=== PATIENT | male | born 1935 | race Caucasian/White ===

== ENCOUNTER 2018-07-17 12:08 | Emergency (ER) | payer MEDICARE ==
[2018-07-17 12:29] VITALS: TEMP 97.4
[2018-07-17] MEDS ORDERED: SODIUM CHLORIDE 0.9% 1,000 ML IV STA (12:34)
[2018-07-17] MEDS ORDERED: MORPHINE SULFATE 4 MG/ML SYRINGE IVP STA ×2 (12:35→15:50)
--- NOTE | 2018-07-17 12:35 | ED ---
Fall HPI - General Chief Complaint: Fall Stated Complaint: fall 12-13 ft Time Seen by Provider: 07/17/18 12:27 Source: patient, EMS Mode of arrival: EMS Limitations: no limitations - History of Present Illness Initial Comments: This is a 82-year-old male fall from roof, patient was doing some fall clean, is up out of his U of the roof of his house down to his ladder and the ladder fell patient then fell to the ground following ladder. Patient's complaining of some back pain with no headache no loss of consciousness no blood thinners. Patient denies shortness of breath or abdominal pain MD Complaint: fall -: minutes(s) Fall From: from height (distance) (10:15 feet) When Fall Occurred: just prior to arrival Fall Witnessed: no Place Fall Occurred: home Loss of Consciousness: none Prolonged Down Time?: no Symptoms Prior to Fall: none Location: head, back Severity: mild Severity scale (1-10): 2 Quality: aching Context: tripped/slipped Associated Symptoms: denies - Related Data Home Medications Medication Instructions Recorded Confirmed Aspirin 81 mg PO DAILY 07/17/18 07/17/18 Atorvastatin [Lipitor] 80 mg PO HS 07/17/18 07/17/18 Allergies Allergy/AdvReac Type Severity Reaction Status Date / Time No Known Allergies Allergy Verified 07/17/18 12:46 Review of Systems ROS Statement: Those systems with pertinent positive or pertinent negative responses have been documented in the HPI. ROS Other: All systems not noted in ROS Statement are negative. Past Medical History Past Medical History: CVA/TIA, Hyperlipidemia History of Any Multi-Drug Resistant Organisms: None Reported Past Surgical History: Bowel Resection Past Psychological History: No Psychological Hx Reported Smoking Status: Former smoker Past Alcohol Use History: Occasional Past Drug Use History: None Reported General Exam - General Exam Comments Initial Comments: This is a 15, trach is midline Airways patent, patient does not appear intoxicated, breath sounds are equal bilaterally Limitations: no limitations General appearance: alert, in no apparent distress Head exam: Present: atraumatic, normocephalic, normal inspection Eye exam: Present: normal appearance, PERRL, EOMI. Absent: scleral icterus, conjunctival injection, periorbital swelling ENT exam: Present: normal exam, mucous membranes moist Neck exam: Present: normal inspection. Absent: tenderness, meningismus, lymphadenopathy Respiratory exam: Present: normal lung sounds bilaterally. Absent: respiratory distress, wheezes, rales, rhonchi, stridor Cardiovascular Exam: Present: regular rate, normal rhythm, normal heart sounds. Absent: systolic murmur, diastolic murmur, rubs, gallop, clicks GI/Abdominal exam: Present: soft, normal bowel sounds. Absent: distended, tenderness, guarding, rebound, rigid Extremities exam: Present: normal inspection, full ROM, normal capillary refill. Absent: tenderness, pedal edema, joint swelling, calf tenderness Back exam: Present: normal inspection Neurological exam: Present: alert, oriented X3, CN II-XII intact Psychiatric exam: Present: normal affect, normal mood Skin exam: Present: warm, dry, intact, normal color. Absent: rash Course Vital Signs 07/17/18 07/17/18 07/17/18 12:16 12:30 12:45 Temperature 97.4 F L Pulse Rate 83 81 82 Respiratory 18 20 20 Rate Blood Pressure 134/63 131/69 137/71 O2 Sat by Pulse 93 L 94 L Oximetry 07/17/18 07/17/18 07/17/18 13:00 13:15 13:30 Temperature Pulse Rate 84 82 74 Respiratory 20 18 20 Rate Blood Pressure 146/69 133/72 131/64 O2 Sat by Pulse 97 97 98 Oximetry 07/17/18 13:45 Temperature Pulse Rate 69 Respiratory 20 Rate Blood Pressure 132/65 O2 Sat by Pulse 98 Oximetry - Reevaluation(s) Reevaluation #1: 07/17/18 13:39 Medical record is reviewed Reevaluation #2: 07/17/18 15:17 Spoke with radiologist regarding CT findings Spoke with family, and son present informed of patient's diagnosis, questions are answered Medical Decision Making - Medical Decision Making 82 male positive fall from building, patient fell off his roof greater than 10 feet. Patient did land on his back and hit his head, no loss of consciousness. Patient does have cervical spine subluxation fraction is unstable, patient is in C-spine has been in C-spine precautions throughout ER stay in per EMS. - Lab Data Result diagrams: 07/17/18 12:20 07/17/18 12:20 Lab Results 07/17/18 07/17/18 07/17/18 Range/Units 12:20 12:20 12:20 WBC 17.9 H (3.8-10.6) k/uL RBC 4.34 (4.30-5.90) m/uL Hgb 12.7 L (13.0-17.5) gm/dL Hct 40.2 (39.0-53.0) % MCV 92.7 (80.0-100.0) fL MCH 29.3 (25.0-35.0) pg MCHC 31.6 (31.0-37.0) g/dL RDW 13.4 (11.5-15.5) % Plt Count 372 (150-450) k/uL Neutrophils % 88 % Lymphocytes % 6 % Monocytes % 4 % Eosinophils % 1 % Basophils % 0 % Neutrophils # 15.6 H (1.3-7.7) k/uL Lymphocytes # 1.1 (1.0-4.8) k/uL Monocytes # 0.7 (0-1.0) k/uL Eosinophils # 0.2 (0-0.7) k/uL Basophils # 0.1 (0-0.2) k/uL PT (9.0-12.0) sec INR (<1.2) APTT (22.0-30.0) sec Sodium 139 (137-145) mmol/L Potassium 4.4 (3.5-5.1) mmol/L Chloride 106 (98-107) mmol/L Carbon Dioxide 26 (22-30) mmol/L Anion Gap 7 mmol/L BUN 21 H (9-20) mg/dL Creatinine 0.91 (0.66-1.25) mg/dL Est GFR (CKD-EPI)AfAm 90 (>60 ml/min/1.73 sqM) Est GFR (CKD-EPI)NonAf 78 (>60 ml/min/1.73 sqM) Glucose 162 H (74-99) mg/dL Plasma Lactic Acid Petey (0.7-2.0) mmol/L Calcium 9.0 (8.4-10.2) mg/dL Total Bilirubin 0.9 (0.2-1.3) mg/dL AST 41 (17-59) U/L ALT 33 (21-72) U/L Alkaline Phosphatase 61 (38-126) U/L Total Creatine Kinase 620 H (55-170) U/L CK-MB (CK-2) 20.1 H (0.0-2.4) ng/mL CK-MB (CK-2) Rel Index 3.2 Troponin I <0.012 (0.000-0.034) ng/mL Total Protein 6.5 (6.3-8.2) g/dL Albumin 3.1 L (3.5-5.0) g/dL Serum Alcohol <10 mg/dL Blood Type Blood Type Recheck Antibody Screen Spec Expiration Date 07/17/18 07/17/18 07/17/18 Range/Units 12:20 12:20 12:20 WBC (3.8-10.6) k/uL RBC (4.30-5.90) m/uL Hgb (13.0-17.5) gm/dL Hct (39.0-53.0) % MCV (80.0-100.0) fL MCH (25.0-35.0) pg MCHC (31.0-37.0) g/dL RDW (11.5-15.5) % Plt Count (150-450) k/uL Neutrophils % % Lymphocytes % % Monocytes % % Eosinophils % % Basophils % % Neutrophils # (1.3-7.7) k/uL Lymphocytes # (1.0-4.8) k/uL Monocytes # (0-1.0) k/uL Eosinophils # (0-0.7) k/uL Basophils # (0-0.2) k/uL PT 11.0 (9.0-12.0) sec INR 1.1 (<1.2) APTT 25.0 (22.0-30.0) sec Sodium (137-145) mmol/L Potassium (3.5-5.1) mmol/L Chloride (98-107) mmol/L Carbon Dioxide (22-30) mmol/L Anion Gap mmol/L BUN (9-20) mg/dL Creatinine (0.66-1.25) mg/dL Est GFR (CKD-EPI)AfAm (>60 ml/min/1.73 sqM) Est GFR (CKD-EPI)NonAf (>60 ml/min/1.73 sqM) Glucose (74-99) mg/dL Plasma Lactic Acid Petey 1.9 (0.7-2.0) mmol/L Calcium (8.4-10.2) mg/dL Total Bilirubin (0.2-1.3) mg/dL AST (17-59) U/L ALT (21-72) U/L Alkaline Phosphatase (38-126) U/L Total Creatine Kinase (55-170) U/L CK-MB (CK-2) (0.0-2.4) ng/mL CK-MB (CK-2) Rel Index Troponin I (0.000-0.034) ng/mL Total Protein (6.3-8.2) g/dL Albumin (3.5-5.0) g/dL Serum Alcohol mg/dL Blood Type A Positive Blood Type Recheck CABO Indicated Antibody Screen NEGATIVE Spec Expiration Date 07/20/2018 - 706 - Radiology Data Radiology results: report reviewed (CT brain C-spine chest and pelvis is positive for C5 on 6 cervical subluxation), image reviewed Disposition Clinical Impression: Fall, Cervical subluxation Disposition: OTHER INSTITUTION NOT DEFINED Condition: Serious Is patient prescribed a controlled substance at d/c from ED?: No Referrals: Mitesh Cook DO [Primary Care Provider] - 1-2 days - Out of Hospital Transfer - Req. Specs Out of Hospital Transfer - Requested Specifics: Other Emergency Center ([facility])
[2018-07-17 13:12] LABS: Basophils # (A) 0.1 k/uL (0-0.2); Basophils % (A) 0 %; Eosinophils # (A) 0.2 k/uL (0-0.7); Eosinophils % (A) 1 %; HCT 40.2 % (39.0-53.0); HGB 12.7 gm/dL (13.0-17.5); Lymphocytes # (A) 1.1 k/uL (1.0-4.8); Lymphocytes % (A) 6 %; MCH 29.3 pg (25.0-35.0); MCHC 31.6 g/dL (31.0-37.0); MCV 92.7 fL (80.0-100.0); Mean Platelet Volume 6.5; Monocytes # (A) 0.7 k/uL (0-1.0); Monocytes % (A) 4 %; Neutrophils # (A) 15.6 k/uL (1.3-7.7); Neutrophils % (A) 88 %; Platelet Count 372 k/uL (150-450); RBC 4.34 m/uL (4.30-5.90); RDW 13.4 % (11.5-15.5); WBC 17.9 k/uL (3.8-10.6)
[2018-07-17 13:19] LABS: ALT 33 U/L (21-72); AST 41 U/L (17-59); Albumin 3.1 g/dL (3.5-5.0); Alcohol <10 mg/dL; Alkaline Phosphatase 61 U/L (38-126); Anion Gap 7 mmol/L; Blood Urea Nitrogen 21 mg/dL (9-20); Carbon Dioxide 26 mmol/L (22-30); Chloride 106 mmol/L (98-107); Glucose 162 mg/dL (74-99); Potassium 4.4 mmol/L (3.5-5.1); Sodium 139 mmol/L (137-145); Total Bilirubin 0.9 mg/dL (0.2-1.3); Total Protein 6.5 g/dL (6.3-8.2)
[2018-07-17 13:20] LABS: INR 1.1 (<1.2)
[2018-07-17 13:49] LABS: Creatine Kinase 620 U/L (55-170)
[2018-07-17 14:02] LABS: Creatine Kinase MB 20.1 ng/mL (0.0-2.4); Troponin I <0.012 ng/mL (0.000-0.034)
--- NOTE | 2018-07-17 14:50 | CT ---
EXAMINATION TYPE: CT ChestAbdPelvis w con DATE OF EXAM: 07/17/2018 COMPARISON: HISTORY: Fall 12-[address] DLP: 5935.2 (brain, cervical, chest abd pelvis) mGycm Automated exposure control for dose reduction was used. CONTRAST: CT scan of the chest, abdomen and pelvis is performed without Oral Contrast and with IV Contrast, pat ient injected with 100 mL of Isovue 300. FINDINGS: LUNGS: The lungs are grossly clear, there is no concerning parenchymal mass or nodule identified. Sub pleural calcification in the right upper lobe laterally may represent a small granuloma. There is emp hysematous change present especially at the upper lobes. Dependent atelectatic changes are present. There is no pleural effusion or pneumothorax seen. The tracheobronchial tree is patent. MEDIASTINUM: There are no greater than 1 cm hilar or mediastinal lymph nodes. No pericardial effusi on is seen. Coronary artery calcifications are present. AORTA: No significant abnormality is seen. OTHER: No additional significant abnormality is seen. LIVER/GB: No significant abnormality is appreciated. Liver shows low attenuation possibly due to hepa tic steatosis. PANCREAS: No significant abnormality is seen. SPLEEN: There is a calcification within the spleen. ADRENALS: Some prominence of the right adrenal gland shows low attenuation and may represent an adeno ma measuring 17 mm, consider follow-up KIDNEYS: No significant abnormality is seen. Cortical cyst associated with the left kidney. REPRODUCT ROBERT ORGANS: No gross abnormality seen. BOWEL: Diverticular change present in the sigmoid colon. FREE AIR: No Free Air visible. ASCITES: None seen. RETROPERITONEAL ADENOPATHY: No retroperitoneal adenopathy is seen. LYMPH NODES: No greater than 1 cm abdominal or pelvic lymph nodes are appreciated. URINARY BLADDER: No significant abnormality is seen. PELVIC ADENOPATHY: None visualized. OSSEOUS STRUCTURES: No significant abnormality is seen. There is mild spinal curvature. Degenerative disc changes are present, there is facet arthropathy. No evident fracture or dislocation. IMPRESSION: No acute osseous fracture, abnormal fluid collection, or evidence of solid organ injury i n the thorax, abdomen, or pelvis. Additional findings above, consider follow-up. Probable old granulo matous disease.
--- NOTE | 2018-07-17 15:02 | CT ---
EXAMINATION TYPE: CT brain rosa david DATE OF EXAM: 07/17/2018 COMPARISON: HISTORY: Fall 12-[address] DLP: 5935.2 (brain, cervical, chest, abd pelvis) mGycm Automated exposure control for dose reduction was used. TECHNIQUE: CT scan of the head and cervical spine are performed without contrast. FINDINGS: There is no acute intracranial hemorrhage, mass effect, or midline shift identified. The ventricles and sulci are within normal limits in size. Periventricular white matter shows low attenu ation. There is cortical atrophy which is likely age-related. The globes are intact and the visualize d sinuses are clear. Cervical spine is visualized in its entirety from C1 through upper thoracic levels and demonstrates a nterior subluxation C5 on C6, bilateral jumped facets are present with resulting canal stenosis, ante rolisthesis grade 1 to grade 2 of C5 on C6. Small ossific densities seen just distal to the C5 verteb ral body are thought likely to be due to endplate fractures at C6 anteriorly. Vertebral bodies are in tact. IMPRESSION: 1. There is bilateral jumped facets C5-6 as described in the cervical spine. Report called to the ref erring clinician at the time of interpretation at exam. 2. No acute intracranial hemorrhage, mass effect, or midline shift is seen.
[2018-07-17] MEDS ORDERED: DIPH,PERTUS(ACELL)TETVAC-LF 0.5 ML VIAL IM ONE (15:56)
[2018-07-17 16:10] LABS: Appearance,Urine Clear (Clear); Bilirubin,Urine Negative (Negative); Blood,Urine Moderate (Negative); Color,Urine Light Yellow; Glucose,Urine (UA) Negative (Negative); Ketones,Urine 1+ (Negative); Leukocyte Esterase,Urine Trace (Negative); Mucus,Urine Rare /hpf; Nitrite,Urine Negative (Negative); PH, Urine 7.5 (5.0-8.0); Protein,Urine Trace (Negative); Specific Gravity,Urine 1.036 (1.001-1.035); Squamous Epithelial Cell,Urine 1 /hpf (0-4); Urobilinogen,Urine <2.0 mg/dL (<2.0); WBC,Urine 4 /hpf (0-5)
[2018-07-17 16:17] LABS: Amphetamine Screen,Urine Not Detected (NotDetected); Barbiturate Screen,Urine Not Detected (NotDetected); Benzodiazepines Screen,Urine Not Detected (NotDetected); Cocaine Screen,Urine Not Detected (NotDetected); Methadone Screen, Urine Not Detected (NotDetected); Opiate Screen,Urine Not Detected (NotDetected); Oxycodone Screen, Urine Not Detected (NotDetected); Phencyclidine Screen,Urine Not Detected (NotDetected); Tricyclic Antidepressant,Urine Not Detected (NotDetected); Urn Cannabinoid Scrn Not Detected (NotDetected)
[2018-07-17 16:58] VITALS: BP 164/88; PULSE 85; RESP 19
== END 2018-07-17 17:09 | disposition other institution (70) ==
LOC: EC 12:08
DX: S13.160A Subluxation of C5/C6 cervical vertebrae, initial encounter (principal); E78.5 Hyperlipidemia, unspecified; Z23 Encounter for immunization; Z86.73 Personal history of transient ischemic attack (TIA), and cerebral infarction without residual deficits; Z87.891 Personal history of nicotine dependence; Z79.82 Long term (current) use of aspirin; Z79.899 Other long term (current) drug therapy; W17.89XA Other fall from one level to another, initial encounter
CPT/HCPCS: 36415; 70450; 71260; 72125; 74177; 80053; 80306; 80320; 81001; 82550; 82553; 83605; 84484; 85025; 85610; 85730; 86850; 86900; 86901; 90715; 93005; 96361; 96374; 96376; 99285

== ENCOUNTER 2022-03-16 11:52 | Inpatient (IN) | payer MEDICARE ==
[2022-03-16] MEDS ORDERED: SODIUM CHLORIDE 0.9% 500 ML 500 ML IV ONE (11:55)
[2022-03-16] MEDS ORDERED: SODIUM CHLORIDE 0.9% 1,000 ML IV STA (11:55)
[2022-03-16 12:49] LABS: Glucose,Whole Blood 65 mg/dL (70-110)
--- NOTE | 2022-03-16 13:16 | CT ---
EXAMINATION TYPE: CT brain wo con DATE OF EXAM: 03/16/2022 COMPARISON: CT dated 07/17/2018 HISTORY: Altered mental status CT DLP: 1235.4 mGycm Automated exposure control for dose reduction was used. TECHNIQUE: CT scan of the brain is performed without IV contrast administration. FINDINGS: Brain volume loss changes, likely age-related. Extensive bilateral cerebral white matter hypodensitie s, likely representing advanced chronic microvascular ischemic changes. Suspected tiny right lentifor m nucleus chronic lacunar infarct. Scattered arterial atherosclerotic calcifications. No acute intracranial hemorrhage. No gross acute cortical infarct. No midline shift, herniation or ve ntriculomegaly. Unremarkable basal cisterns, sella and CP angles. No gross space-occupying lesion, va sogenic edema or mass effect. Unremarkable orbits. Clear visualized paranasal sinuses and mastoid air cells. Degenerative changes o f the TMJs and atlantoodontoid articulation. IMPRESSION: No acute hemorrhage or gross acute cortical infarct. Suspected advanced chronic microvascular ischemi c changes and other chronic findings as described above. A small acute or hyperacute infarct cannot be excluded by this CT scan. Further MRI with DWI assessme nt can be considered if clinically required.
--- NOTE | 2022-03-16 13:36 | ED ---
Altered Mental Status HPI - General Chief Complaint: Altered Mental Status Stated Complaint: Altered Mental Time Seen by Provider: 03/16/22 11:52 Source: EMS, RN notes reviewed, old records reviewed Mode of arrival: EMS Limitations: altered mental status - History of Present Illness Initial Comments: He 6-year-old male brought in by EMS from shelter for evaluation of decreased level of consciousness. He apparently was seen at [facility] and evaluated. Sent back here today for reevaluation patient is a poor historian no complaints of trauma fevers chills or sweats. Suspected decreased oral intake. It was thought that patient may have had a seizure yesterday. MD Complaint: altered mental status, decreased responsiveness - Related Data Home Medications Medication Instructions Recorded Confirmed Acetaminophen [Tylenol] 650 mg PO Q6H PRN 03/16/22 03/16/22 Atorvastatin Calcium 20 mg PO HS 03/16/22 03/16/22 Escitalopram [Lexapro] 10 mg PO DAILY 03/16/22 03/16/22 Famotidine [Pepcid] 20 mg PO DAILY 03/16/22 03/16/22 Hydrocortisone Cream 1 applic TOPICAL BID 03/16/22 03/16/22 [Hydrocortisone 1% Cream] Lactobacillus Acidophilus 1 tab PO DAILY 03/16/22 03/16/22 [Acidophilus] Menthol-Zinc Oxide Oint 1 applic TOPICAL Q12H 03/16/22 03/16/22 [Calmoseptine Ointment] Mirtazapine 7.5 mg PO HS 03/16/22 03/16/22 amLODIPine [Norvasc] 5 mg PO DAILY 03/16/22 03/16/22 carvediloL [Coreg] 6.25 mg PO Q12H 03/16/22 03/16/22 levETIRAcetam [Keppra] 500 mg PO BID 03/16/22 03/16/22 lisinopriL [Zestril] 2.5 mg PO DAILY 03/16/22 03/16/22 risperiDONE [RisperDAL] 0.5 mg PO Q12H 03/16/22 03/16/22 Allergies Allergy/AdvReac Type Severity Reaction Status Date / Time No Known Allergies Allergy Verified 03/16/22 15:09 Review of Systems ROS Statement: Those systems with pertinent positive or pertinent negative responses have been documented in the HPI. ROS Other: All systems not noted in ROS Statement are negative. Limitations: ROS unobtainable due to patients medical condition Past Medical History Past Medical History: CVA/TIA, Hyperlipidemia History of Any Multi-Drug Resistant Organisms: None Reported Past Surgical History: Bowel Resection Past Psychological History: No Psychological Hx Reported Past Alcohol Use History: Occasional Past Drug Use History: None Reported General Exam - General Exam Comments Initial Comments: This is a well-developed thin appearing male who is awake but lethargic Limitations: altered mental status General appearance: alert, in no apparent distress, lethargic Head exam: Present: atraumatic, normocephalic, normal inspection Eye exam: Present: normal appearance, PERRL, EOMI. Absent: scleral icterus, conjunctival injection, periorbital swelling ENT exam: Present: mucous membranes dry Neck exam: Present: normal inspection, full ROM, other (No stridor JVD or bruits). Absent: tenderness, meningismus, lymphadenopathy Respiratory exam: Present: decreased breath sounds. Absent: respiratory distress, wheezes, rales, rhonchi, stridor Cardiovascular Exam: Present: regular rate, normal rhythm, normal heart sounds. Absent: systolic murmur, diastolic murmur, rubs, gallop, clicks GI/Abdominal exam: Present: soft, normal bowel sounds. Absent: distended, tenderness, guarding, rebound, rigid Extremities exam: Present: normal inspection, full ROM, normal capillary refill. Absent: tenderness, pedal edema, joint swelling, calf tenderness Back exam: Present: normal inspection Neurological exam: Present: alert, oriented X3, CN II-XII intact Psychiatric exam: Present: normal affect, normal mood Skin exam: Present: warm, dry, intact, normal color. Absent: rash Course Vital Signs 03/16/22 11:53 Temperature 97.4 F L Pulse Rate 68 Respiratory 16 Rate Blood Pressure 129/74 O2 Sat by Pulse 94 L Oximetry Medical Decision Making - Medical Decision Making The patient thus far as not allow significant a UA. X-ray shows evidence of interstitial pneumonitis. CT negative for acute processes evidence of dehydration clinically. I did discuss case with Dr. Chamorro the patient be admitted IV fluids IV antibiotics and further evaluation - Lab Data Result diagrams: 03/16/22 13:13 03/16/22 13:13 Lab Results 03/16/22 03/16/22 03/16/22 Range/Units 12:47 13:13 13:13 WBC 7.2 (3.8-10.6) k/uL RBC 4.77 (4.30-5.90) m/uL Hgb 14.2 (13.0-17.5) gm/dL Hct 45.1 (39.0-53.0) % MCV 94.5 (80.0-100.0) fL MCH 29.8 (25.0-35.0) pg MCHC 31.5 (31.0-37.0) g/dL RDW 13.8 (11.5-15.5) % Plt Count 415 (150-450) k/uL MPV 7.0 Neutrophils % 77 % Lymphocytes % 14 % Monocytes % 6 % Eosinophils % 1 % Basophils % 1 % Neutrophils # 5.5 (1.3-7.7) k/uL Lymphocytes # 1.0 (1.0-4.8) k/uL Monocytes # 0.4 (0-1.0) k/uL Eosinophils # 0.1 (0-0.7) k/uL Basophils # 0.0 (0-0.2) k/uL PT 11.5 (9.0-12.0) sec INR 1.1 (<1.2) APTT 25.7 (22.0-30.0) sec Sodium (137-145) mmol/L Potassium (3.5-5.1) mmol/L Chloride (98-107) mmol/L Carbon Dioxide (22-30) mmol/L Anion Gap mmol/L BUN (9-20) mg/dL Creatinine (0.66-1.25) mg/dL Est GFR (CKD-EPI)AfAm (>60 ml/min/1.73 sqM) Est GFR (CKD-EPI)NonAf (>60 ml/min/1.73 sqM) Glucose (74-99) mg/dL POC Glucose (mg/dL) 65 L (70-110) mg/dL POC Glu [place] ID Erin [place] Calcium (8.4-10.2) mg/dL Total Bilirubin (0.2-1.3) mg/dL AST (17-59) U/L ALT (4-49) U/L Alkaline Phosphatase (38-126) U/L Ammonia (<30) umol/L Troponin I (0.000-0.034) ng/mL Total Protein (6.3-8.2) g/dL Albumin (3.5-5.0) g/dL 03/16/22 03/16/22 03/16/22 Range/Units 13:13 13:13 13:13 WBC (3.8-10.6) k/uL RBC (4.30-5.90) m/uL Hgb (13.0-17.5) gm/dL Hct (39.0-53.0) % MCV (80.0-100.0) fL MCH (25.0-35.0) pg MCHC (31.0-37.0) g/dL RDW (11.5-15.5) % Plt Count (150-450) k/uL MPV Neutrophils % % Lymphocytes % % Monocytes % % Eosinophils % % Basophils % % Neutrophils # (1.3-7.7) k/uL Lymphocytes # (1.0-4.8) k/uL Monocytes # (0-1.0) k/uL Eosinophils # (0-0.7) k/uL Basophils # (0-0.2) k/uL PT (9.0-12.0) sec INR (<1.2) APTT (22.0-30.0) sec Sodium 142 (137-145) mmol/L Potassium 5.1 (3.5-5.1) mmol/L Chloride 111 H (98-107) mmol/L Carbon Dioxide 23 (22-30) mmol/L Anion Gap 8 mmol/L BUN 23 H (9-20) mg/dL Creatinine 0.77 (0.66-1.25) mg/dL Est GFR (CKD-EPI)AfAm >90 (>60 ml/min/1.73 sqM) Est GFR (CKD-EPI)NonAf 82 (>60 ml/min/1.73 sqM) Glucose 87 (74-99) mg/dL POC Glucose (mg/dL) (70-110) mg/dL POC Glu Qu[place]man ID Calcium 8.3 L (8.4-10.2) mg/dL Total Bilirubin 1.5 H (0.2-1.3) mg/dL AST 28 (17-59) U/L ALT 19 (4-49) U/L Alkaline Phosphatase 40 (38-126) U/L Ammonia <9 (<30) umol/L Troponin I <0.012 (0.000-0.034) ng/mL Total Protein 6.4 (6.3-8.2) g/dL Albumin 3.2 L (3.5-5.0) g/dL - EKG Data -: EKG Interpreted by Me EKG shows normal: sinus rhythm EKG Comments: Sinus rhythm a 75. Interval 143 QRS duration 102 DT says QTC 435/463 left exodeviation pulmonary disease pattern poor R-wave progression - Radiology Data Radiology results: report reviewed (Imaging reviewed CT negative for acute processes consistent with ischemic changes the x-ray shows evidence of interstitial changes consistent with pneumonitis), image reviewed Disposition Clinical Impression: Altered mental status, Delirium due to general medical condition, Pneumonia, Dehydration Disposition: ADMITTED IP TO THIS HOSP Condition: Fair Referrals: Nico Randall MD [Primary Care Provider] - 1-2 days Decision Date: 03/16/22 Decision Time: 15:30
[2022-03-16 13:39] LABS: ALT 19 U/L (4-49); African American GFR (CKD) >90 (>60 ml/min/1.73 sqM); Anion Gap 8 mmol/L; Blood Urea Nitrogen 23 mg/dL (9-20); Calcium 8.3 mg/dL (8.4-10.2); Carbon Dioxide 23 mmol/L (22-30); Chloride 111 mmol/L (98-107); Glucose 87 mg/dL (74-99); Non-African American GFR(CKD) 82 (>60 ml/min/1.73 sqM); Sodium 142 mmol/L (137-145); Total Bilirubin 1.5 mg/dL (0.2-1.3)
[2022-03-16 13:42] LABS: AST 28 U/L (17-59); Albumin 3.2 g/dL (3.5-5.0); Alkaline Phosphatase 40 U/L (38-126); Potassium 5.1 mmol/L (3.5-5.1); Total Protein 6.4 g/dL (6.3-8.2)
[2022-03-16 13:43] LABS: INR 1.1 (<1.2); Partial Thromboplastin Time 25.7 sec (22.0-30.0); Prothrombin Time 11.5 sec (9.0-12.0)
[2022-03-16 13:50] LABS: Basophils % (A) 1 %; Eosinophils # (A) 0.1 k/uL (0-0.7); Eosinophils % (A) 1 %; HCT 45.1 % (39.0-53.0); HGB 14.2 gm/dL (13.0-17.5); Lymphocytes % (A) 14 %; MCH 29.8 pg (25.0-35.0); MCHC 31.5 g/dL (31.0-37.0); MCV 94.5 fL (80.0-100.0); Monocytes # (A) 0.4 k/uL (0-1.0); Monocytes % (A) 6 %; Neutrophils # (A) 5.5 k/uL (1.3-7.7); Neutrophils % (A) 77 %; Platelet Count 415 k/uL (150-450); RBC 4.77 m/uL (4.30-5.90); RDW 13.8 % (11.5-15.5); WBC 7.2 k/uL (3.8-10.6)
--- NOTE | 2022-03-16 13:57 | XR ---
EXAMINATION TYPE: XR chest 2V DATE OF EXAM: 03/16/2022 COMPARISON: NONE TECHNIQUE: PA and lateral views submitted. HISTORY: Altered mental status FINDINGS: Diffuse interstitial pattern with tiny bilateral pleural effusions and consolidation. Diffuse osteope miles throughout shoulders. Postsurgical changes cervical spine. Atherosclerotic change aorta. Correlat e for underlying COPD. Hypertrophic degenerative change of the spine. IMPRESSION: 1. Correlate for CHF otherwise consider interstitial pneumonitis\pneumonia.
[2022-03-16] MEDS ORDERED: cefTRIAXone IN SWFI 1,000 MG/10 ML SYRINGE IVP STA (15:45)
[2022-03-16] MEDS ORDERED: PNEUMONIA PROTOCOL UTILIZED 1 EACH MISC PO PRN (16:11)
[2022-03-16] MEDS ORDERED: AZITHROMYCIN 500 MG in SODIUM CHLORIDE 0.9% 250 ML IVPB STA (16:11)
[2022-03-16] MEDS ORDERED: IPRATROPIUM-ALBUTEROL 3 ML NEB INHALATION PRN (17:28)
[2022-03-16] MEDS ORDERED: PIPERACILLIN-TAZOBACTAM 3.375 GM in SODIUM CHLORIDE 0.9% 100 ML IVPB SCH (18:00)
[2022-03-16] MEDS ORDERED: LORazepam 2 MG/ML INJ IM PRN (18:01)
[2022-03-16] MEDS ORDERED: HALOPERIDOL LACTATE 5 MG/ML 1 ML VIAL IM PRN (18:02)
[2022-03-16] MEDS: carvediloL 6.25 MG TAB PO SCH (18:39)
[2022-03-16] MEDS: IPRATROPIUM-ALBUTEROL 3 ML NEB INHALATION SCH (19:05)
--- NOTE | 2022-03-16 19:08 | HP ---
HISTORY AND PHYSICAL CHIEF COMPLAINT: Change in mental status. HISTORY OF PRESENT ILLNESS: This 86-year-old gentleman with a past medical history of multiple medical problems, including CVA, TIA, hyperlipidemia, was complaining of some change in mental status. Patient was taken to [facility]. Patient has features of UTI. The patient is not cooperative and slightly combative and confused. He is unable to give a history. Most of the history is taken from my discussion with staff and review of the chart and discussion with the ER physician. The patient was in [facility] and was seen by [facility] today. There is no history of trauma. Pneumonia is also suspected. PAST MEDICAL HISTORY: Includes CVA, TIA and hyperlipidemia. MEDICATIONS: Home medications are reviewed and include Risperdal. Doses and the rest of the medications are noted. ALLERGIES: NONE. Family history, social history and review of systems could not be taken because of confusion. PHYSICAL EXAMINATION: Pulse is 68, blood pressure 129/72, respiration 16. HEENT: Conjunctivae normal. NECK: No jugular venous distention. CARDIOVASCULAR: S1, S2 muffled. RESPIRATION: Breath sounds diminished at the bases. A few scattered rhonchi and crackles. ABDOMEN: Soft, nontender. LEGS: No edema. No swelling. NERVOUS SYSTEM: Diffusely weak. SKIN: No ulcer, rash, bleeding. JOINTS: No active deforming arthropathy. LABS: CBC noted. Total bilirubin is 1.5. ASSESSMENT: 1. Bilateral pneumonia, possibly aspiration. 2. Acute delirium. 3. Dementia. 4. Cerebrovascular accident, transient ischemic attack. 5. Hyperlipidemia. RECOMMENDATIONS AND DISCUSSION: I recommend to continue current medications, continue with the monitoring, symptomatic treatment. Will initiate broad-spectrum IV antibiotics. Pulmonary consultation. The prognosis is guarded because of multiple complex medical issues. Further recommendations to follow. See orders for details. MMODL / IJN: [id number] /
[2022-03-16] MEDS: levETIRAcetam 500 MG TAB PO SCH (23:33)
[2022-03-16] MEDS: risperiDONE 0.5 MG TAB PO SCH (23:33)
[2022-03-16] MEDS: ATORVASTATIN 20 MG TAB PO SCH (23:33)
[2022-03-16] MEDS: MIRTAZAPINE 15 MG TAB PO SCH (23:33)
[2022-03-16] MEDS: SODIUM CHLORIDE 0.9% 1,000 ML IV SCH (23:34)
[2022-03-16 23:53] LABS: Appearance,Urine Clear (Clear); Bilirubin,Urine Negative (Negative); Blood,Urine Negative (Negative); Color,Urine Yellow; Glucose,Urine (UA) Negative (Negative); Ketones,Urine Negative (Negative); Leukocyte Esterase,Urine Negative (Negative); Nitrite,Urine Negative (Negative); Protein,Urine Negative (Negative); Specific Gravity,Urine 1.022 (1.001-1.035); Urobilinogen,Urine <2.0 mg/dL (<2.0)
[2022-03-17 00:05] LABS: Amphetamine Screen,Urine Not Detected (NotDetected); Barbiturate Screen,Urine Not Detected (NotDetected); Benzodiazepines Screen,Urine Detected (NotDetected); Cocaine Screen,Urine Not Detected (NotDetected); Methadone Screen, Urine Not Detected (NotDetected); Opiate Screen,Urine Not Detected (NotDetected); Oxycodone Screen, Urine Not Detected (NotDetected); Phencyclidine Screen,Urine Not Detected (NotDetected); Tricyclic Antidepressant,Urine Not Detected (NotDetected); Urn Cannabinoid Scrn Not Detected (NotDetected)
[2022-03-17] MEDS: SODIUM CHLORIDE 0.9% 1,000 ML IV SCH ×3 (02:33→16:46)
[2022-03-17] MEDS ORDERED: LORazepam 1 MG/0.5 ML VIAL IM PRN (03:54)
[2022-03-17] MEDS: carvediloL 6.25 MG TAB PO SCH ×2 (05:24→16:50)
[2022-03-17] MEDS: risperiDONE 0.5 MG TAB PO SCH ×2 (05:25→16:50)
[2022-03-17] MEDS: PIPERACILLIN-TAZOBACTAM 3.375 GM in SODIUM CHLORIDE 0.9% 100 ML IVPB SCH ×3 (05:29→22:00)
[2022-03-17] MEDS: IPRATROPIUM-ALBUTEROL 3 ML NEB INHALATION SCH ×3 (08:14→19:14)
[2022-03-17 08:48] LABS: Basophils # (A) 0.07 X 10*3/uL (0.00-0.10); Basophils % (A) 0.8 %; Eosinophils % (A) 2.4 %; HCT 41.2 % (39.6-50.0); HGB 13.4 g/dL (13.0-17.0); Immature Grans, Automated 0.4 %; Lymphocytes # (A) 1.16 X 10*3/uL (0.90-5.00); Lymphocytes % (A) 13.8 %; MCH 29.6 pg (27.0-32.0); MCHC 32.5 g/dL (32.0-37.0); MCV 91.2 fL (80.0-97.0); Mean Platelet Volume 8.8 fL (9.5-12.2); Monocytes # (A) 0.82 X 10*3/uL (0.20-1.00); Monocytes % (A) 9.7 %; NRBC Per 100 WBC 0 /100 WBCS (0.0-0.0); Neutrophils # (A) 6.14 X 10*3/uL (1.80-7.70); Neutrophils % (A) 72.9 %; Platelet Count 368 X 10*3/uL (140-440); RBC 4.52 X 10*6/uL (4.40-5.60); RDW 13.2 % (11.5-14.5); WBC 8.42 X 10*3/uL (4.50-10.00)
--- NOTE | 2022-03-17 08:54 | XR ---
EXAMINATION TYPE: XR chest 2V DATE OF EXAM: 03/17/2022 COMPARISON: 03/16/2022 TECHNIQUE: PA and lateral views submitted. HISTORY: Follow-up pneumonia FINDINGS: Heart size normal. Atherosclerotic change aorta. No pneumothorax. Small bilateral pleural effusion wi th basilar subsegmental consolidation. No overt failure. Hypertrophic degenerative changes in the spi ne. Hyperinflation suggests COPD. Mild coarsening of interstitium. IMPRESSION: 1. Small bilateral pleural effusion COPD. Mild central venous congestion or interstitial pneumonitis in the differential diagnosis.
[2022-03-17] MEDS: FAMOTIDINE 20 MG TAB PO SCH (09:48)
[2022-03-17] MEDS: ESCITALOPRAM 10 MG TAB PO SCH (09:49)
[2022-03-17] MEDS: LACTOBACILLUS ACIDOPH & BULGAR 1 EACH PACKET PO SCH (09:49)
[2022-03-17] MEDS: AZITHROMYCIN 500 MG TAB PO SCH (09:49)
[2022-03-17] MEDS: amLODIPine 5 MG TAB PO SCH (09:49)
[2022-03-17] MEDS: levETIRAcetam 500 MG TAB PO SCH ×2 (09:50→23:45)
[2022-03-17 11:48] LABS: African American GFR (CKD) 78.1 (60.0-200.0); Albumin 3.2 g/dL (3.8-4.9); Albumin/Globulin Ratio 1.23 (1.60-3.17); Anion Gap 11.4 mmol/L (10.00-18.00); BUN/Creat Ratio 18.1 Ratio (12.00-20.00); Blood Urea Nitrogen 18.1 mg/dL (9.0-27.0); Calcium 8.7 mg/dL (8.7-10.3); Carbon Dioxide 20.6 mmol/L (20.0-27.5); Globulin 2.6 g/dL (1.6-3.3); Non-African American GFR(CKD) 67.4 (60.0-200.0); Potassium 3.9 mmol/L (3.5-5.5); Total Bilirubin 0.7 mg/dL (0.30-1.20); Total Protein 5.8 g/dL (6.2-8.2)
--- NOTE | 2022-03-17 19:03 | PN ---
PROGRESS NOTE DATE OF SERVICE: 03/17/2022 This 86-year-old gentleman was admitted with bilateral pneumonia is being closely monitored. Patient is basically minimally responsive. PHYSICAL EXAMINATION: Pulse is 57. Blood pressure 117/84 respiration 15. HEENT: Conjunctivae normal. Neck: No JVD. Cardiovascular: S1, S2. Respirations: Scattered rhonchi. Abdomen: Soft. Nervous system: Diffusely weak. LABS: Reviewed. Cultures are negative so far. ASSESSMENT: 1. Acute bilateral pneumonia possibly aspiration. 2. Acute delirium. 3. Dementia. 4. Cerebrovascular accident, transient ischemic attack. 5. Hyperlipidemia. 6. NO CODE, NO CPR, NO VENT. RECOMMENDATIONS AND DISCUSSION: Continue current medications, management and symptomatic treatment. Otherwise at this time broad spectrum IV antibiotics. Speech pathology evaluation. Modified barium swallow. Further recommendations to follow. MMODL / IJN: [id number] /
[2022-03-17] MEDS: ACETAMINOPHEN TAB 325 MG TAB PO PRN (20:31)
[2022-03-17] MEDS: MIRTAZAPINE 15 MG TAB PO SCH (20:31)
[2022-03-17] MEDS: ATORVASTATIN 20 MG TAB PO SCH (20:33)
[2022-03-18] MEDS: carvediloL 6.25 MG TAB PO SCH ×2 (05:41→17:08)
[2022-03-18] MEDS: risperiDONE 0.5 MG TAB PO SCH ×2 (05:41→17:09)
[2022-03-18] MEDS: PIPERACILLIN-TAZOBACTAM 3.375 GM in SODIUM CHLORIDE 0.9% 100 ML IVPB SCH ×3 (05:42→21:09)
[2022-03-18] MEDS: IPRATROPIUM-ALBUTEROL 3 ML NEB INHALATION SCH ×3 (07:43→20:38)
[2022-03-18] MEDS: SODIUM CHLORIDE 0.9% 1,000 ML IV SCH ×2 (08:05→19:50)
[2022-03-18] MEDS: amLODIPine 5 MG TAB PO SCH (08:06)
[2022-03-18] MEDS: AZITHROMYCIN 500 MG TAB PO SCH (08:06)
[2022-03-18] MEDS: ESCITALOPRAM 10 MG TAB PO SCH (08:06)
[2022-03-18] MEDS: levETIRAcetam 500 MG TAB PO SCH ×2 (08:07→20:55)
[2022-03-18] MEDS: FAMOTIDINE 20 MG TAB PO SCH (08:07)
[2022-03-18] MEDS: LACTOBACILLUS ACIDOPH & BULGAR 1 EACH PACKET PO SCH (08:07)
[2022-03-18] MEDS: ATORVASTATIN 20 MG TAB PO SCH (20:55)
[2022-03-18] MEDS: MIRTAZAPINE 15 MG TAB PO SCH (20:55)
--- NOTE | 2022-03-19 03:48 | P.PN ---
Subjective Progress Note Date: 03/18/22 This is a 86 year old male who was recently admitted with bilateral pneumonia and is being closely monitored with pulmonary following. Patient is maintained on breathing inhalational treatments and will continue. Recommend IV abx in the form of zosyn. Patient is more awake today although continues with confusion. Wean FI02 as tolerated and currently room air. Speech therapy attempted swallow eval and patient refused. Patient is extremely high risk for aspiration and will recommend dysphagia diet and strict aspiration precautions. Patient is afebrile with no reported chest pain or shortness of breath. Patient will return to ECF once stable. Review of systems: unable to obtain as patient is confused All medications have been reviewed Active Medications Acetaminophen (Acetaminophen Tab 325 Mg Tab) 650 mg PO Q6H PRN PRN Reason: Pain or Fever > 100.5 Last Admin: 03/17/22 20:31 Dose: 650 mg Albuterol/Ipratropium (Ipratropium-Albuterol 3 Ml Neb) 3 ml INHALATION RT-TID [facility] Last Admin: 03/18/22 20:38 Dose: 3 ml Albuterol/Ipratropium (Ipratropium-Albuterol 3 Ml Neb) 3 ml INHALATION RT-TID PRN PRN Reason: Shortness Of Breath Or Wheezing Amlodipine Besylate (Amlodipine 5 Mg Tab) 5 mg PO DAILY [facility] Last Admin: 03/18/22 08:06 Dose: Not Given Atorvastatin Calcium (Atorvastatin 20 Mg Tab) 20 mg PO HS [facility] Last Admin: 03/18/22 20:55 Dose: 20 mg Carvedilol (Carvedilol 6.25 Mg Tab) 6.25 mg PO Q12H [facility] Last Admin: 03/18/22 17:08 Dose: 6.25 mg Escitalopram Oxalate (Escitalopram 10 Mg Tab) 10 mg PO DAILY [facility] Last Admin: 03/18/22 08:06 Dose: Not Given Famotidine (Famotidine 20 Mg Tab) 20 mg PO DAILY [facility] Last Admin: 03/18/22 08:07 Dose: Not Given Haloperidol Lactate (Haloperidol Lactate 5 Mg/Ml 1 Ml Vial) 5 mg IM Q6HR PRN PRN Reason: Agitation or Acute Psychosis Sodium Chloride (Saline 0.9%) 1,000 mls @ 75 mls/hr IV .[id number] [facility] Last Admin: 03/18/22 19:50 Dose: Not Given Piperacillin Sod/Tazobactam (Sod 3.375 gm/ Sodium Chloride) 100 mls @ 25 mls/hr IVPB Q8H [facility]; Protocol Last Admin: 03/18/22 21:09 Dose: 25 mls/hr Lactobacillus Acidoph/Bulgaricus (Lactobacillus Acidoph & Bulgar 1 Each Packet) 1 each PO DAILY [facility] Last Admin: 03/18/22 08:07 Dose: Not Given Levetiracetam (Levetiracetam 500 Mg Tab) 500 mg PO BID [facility] Last Admin: 03/18/22 20:55 Dose: 500 mg Lisinopril (Lisinopril 2.5 Mg Tab) 2.5 mg PO DAILY [facility] Last Admin: 03/18/22 08:07 Dose: Not Given Lorazepam (Lorazepam 1 Mg/0.5 Ml Vial) 1 mg IM Q3HR PRN PRN Reason: Agitation Mirtazapine (Mirtazapine 15 Mg Tab) 7.5 mg PO HS [facility] Last Admin: 03/18/22 20:55 Dose: 7.5 mg Miscellaneous Information (Pneumonia Protocol Utilized 1 Each Misc) 1 each PO ONCE PRN PRN Reason: Per Protocol Risperidone (Risperidone 0.5 Mg Tab) 0.5 mg PO Q12H [facility] Last Admin: 03/18/22 17:09 Dose: 0.5 mg PHYSICAL EXAMINATION: GENERAL: The patient is alert and oriented x1-2, thin built ill appearing HEENT: PERRLA. EOMI. no scleral icterus. No conjunctival pallor. Normocephalic, atraumatic. No pharyngeal erythema. No thyromegaly. CARDIOVASCULAR: S1 and S2 muffled PULMONARY: diminished breath sounds bilaterally with course rhonchi and crackles noted. ABDOMEN: soft. non tender on exam non-distended, normoactive bowel sounds. No palpable organomegaly. MUSCULOSKELETAL: No joint swelling or deformity. EXTREMITIES: No cyanosis, clubbing, or pedal edema. NEUROLOGICAL: Gross neurological examination did not reveal any focal deficits. diffusely weak SKIN: No rashes. Assessment: Acute bilateral pneumonia possibly aspiration Acute delirium Dementia CVA, TIA history Hyperlipidemia Multiple medical issues GI prophylaxis DVT prophylaxis No code Plan: Recommend to continue with current medications and management with pulmonary following. Patient is continued on IV zosyn and breathing treatments and will continue. Speech therapy attempted to evaluate the patient for swallow and patient refused. Patient is high risk for aspiration and will adjust diet to dyspagia 3 chopped and strict aspiration precautions and supervision with meals. Continue weaning FI02 as tolerated. Currently now on room air. Due to multiple medical issues, prognosis is guarded. Patient will return to ECF once stable. The impression and plan of care has been dictated by Lorene Villegas, nurse practitioner as directed. MD Magdy I have performed a history and examination and MDM of this patient, discussed the same with the dictator, and agree with the dictator's assessment and plan as written ,documented as a scribe. Based on total visit time, I have performed more than 50% of the visit. Any additional findings or plans will be noted. Objective - Vital Signs Vital signs: Vital Signs Temp 98.0 F 03/18/22 06:52 Pulse 80 03/18/22 07:44 Resp 16 03/18/22 06:52 BP 160/70 03/18/22 06:52 Pulse Ox 92 L 03/18/22 07:44 FiO2 21 03/18/22 07:44 Intake & Output 03/17/22 03/18/22 03/18/22 18:59 06:59 18:59 Other: Voiding Method Diaper Diaper # Voids 1 - Labs CBC & Chem 7: 03/17/22 06:45 03/17/22 06:45 Labs: Abnormal Lab Results - Last 24 Hours (Table) 03/17/22 Range/Units 06:45 Total Protein 5.8 L (6.2-8.2) g/dL Albumin 3.2 L (3.8-4.9) g/dL Albumin/Globulin Ratio 1.23 L (1.60-3.17) g/dL Microbiology - Last 24 Hours (Table) 03/17/22 06:45 Blood Culture - Preliminary Blood No Growth after 24 hours
[2022-03-19] MEDS: carvediloL 6.25 MG TAB PO SCH ×2 (05:21→17:17)
[2022-03-19] MEDS: PIPERACILLIN-TAZOBACTAM 3.375 GM in SODIUM CHLORIDE 0.9% 100 ML IVPB SCH (05:21)
[2022-03-19] MEDS: risperiDONE 0.5 MG TAB PO SCH ×2 (05:21→17:17)
--- NOTE | 2022-03-19 07:12 | XR ---
EXAMINATION TYPE: XR chest 1V portable DATE OF EXAM: 03/19/2022 5:45 AM COMPARISON: Chest radiograph from one day prior. TECHNIQUE: XR chest 1V portable Portable AP radiograph of the chest.. CLINICAL INDICATION:Male, 86 years old with history of shortness of breath; FINDINGS: Lungs/Pleura: Unchanged trace bilateral pleural effusions. Scattered reticular opacities are unchange d as well. There is no evidence of focal consolidation, or pneumothorax. Pulmonary vascularity: Mild pulmonary vascular congestion. Heart/mediastinum: Cardiomediastinal silhouette is enlarged and stable. Musculoskeletal: No acute osseous pathology. IMPRESSION: Grossly unchanged exam with scattered reticular opacities suggestive of pulmonary vascular congestion , bilateral pleural effusions with cardiomegaly suggestive of congestive heart failure.
[2022-03-19] MEDS: IPRATROPIUM-ALBUTEROL 3 ML NEB INHALATION SCH ×4 (07:42→19:45)
[2022-03-19] MEDS: FAMOTIDINE 20 MG TAB PO SCH (08:41)
[2022-03-19] MEDS: levETIRAcetam 500 MG TAB PO SCH ×2 (08:41→20:07)
[2022-03-19] MEDS: amLODIPine 5 MG TAB PO SCH (08:41)
[2022-03-19] MEDS: ESCITALOPRAM 10 MG TAB PO SCH (08:41)
[2022-03-19] MEDS: LACTOBACILLUS ACIDOPH & BULGAR 1 EACH PACKET PO SCH (08:41)
[2022-03-19] MEDS: SODIUM CHLORIDE 0.9% 1,000 ML IV SCH (08:42)
--- NOTE | 2022-03-19 18:28 | P.PN ---
Subjective Progress Note Date: 03/19/22 This is a 86 year old male who was recently admitted with bilateral pneumonia and is being closely monitored with pulmonary following. Patient is maintained on breathing inhalational treatments and will continue. Recommend IV abx in the form of zosyn. Patient is more awake today although continues with confusion. Wean FI02 as tolerated and currently room air. Speech therapy attempted swallow eval and patient refused. Patient is extremely high risk for aspiration and will recommend dysphagia diet and strict aspiration precautions. Patient is afebrile with no reported chest pain or shortness of breath. Patient will return to ECF once stable. 03/19/2022 Patient is seen sitting up in the chair this am and much more alert. Patient denies any chest pain or shortness of breath. Patient diet was changed to dysphagia and chopped diet with aspiration precautions and recommend to continue with aspiration precautions. Patient has removed multiple IVs and will transition medications to oral. Patient is scheduled to return to ECF and will follow up with case management about this. Patient is afebrile and denies chest pain or shortness of breath. Patient is on room air. Review of systems: unable to obtain as patient is agitated, as he reports he wants to be discharged All medications have been reviewed Active Medications Acetaminophen (Acetaminophen Tab 325 Mg Tab) 650 mg PO Q6H PRN PRN Reason: Pain or Fever > 100.5 Last Admin: 03/17/22 20:31 Dose: 650 mg Albuterol/Ipratropium (Ipratropium-Albuterol 3 Ml Neb) 3 ml INHALATION RT-TID [facility] Last Admin: 03/19/22 12:10 Dose: Not Given Albuterol/Ipratropium (Ipratropium-Albuterol 3 Ml Neb) 3 ml INHALATION RT-TID PRN PRN Reason: Shortness Of Breath Or Wheezing Amlodipine Besylate (Amlodipine 5 Mg Tab) 5 mg PO DAILY [facility] Last Admin: 03/19/22 08:41 Dose: Not Given Amoxicillin/Clavulanate Potassium (Amoxic-Pot Clav 875-125mg 1 Each Tab) 1 each PO Q12HR [facility]; Protocol Atorvastatin Calcium (Atorvastatin 20 Mg Tab) 20 mg PO HS [facility] Last Admin: 03/18/22 20:55 Dose: 20 mg Carvedilol (Carvedilol 6.25 Mg Tab) 6.25 mg PO Q12H [facility] Last Admin: 03/19/22 17:17 Dose: 6.25 mg Escitalopram Oxalate (Escitalopram 10 Mg Tab) 10 mg PO DAILY [facility] Last Admin: 03/19/22 08:41 Dose: Not Given Famotidine (Famotidine 20 Mg Tab) 20 mg PO DAILY [facility] Last Admin: 03/19/22 08:41 Dose: Not Given Haloperidol Lactate (Haloperidol Lactate 5 Mg/Ml 1 Ml Vial) 5 mg IM Q6HR PRN PRN Reason: Agitation or Acute Psychosis Sodium Chloride (Saline 0.9%) 1,000 mls @ 75 mls/hr IV .[id number] [facility] Last Admin: 03/19/22 08:42 Dose: Not Given Lactobacillus Acidoph/Bulgaricus (Lactobacillus Acidoph & Bulgar 1 Each Packet) 1 each PO DAILY [facility] Last Admin: 03/19/22 08:41 Dose: Not Given Levetiracetam (Levetiracetam 500 Mg Tab) 500 mg PO BID [facility] Last Admin: 03/19/22 08:41 Dose: Not Given Lisinopril (Lisinopril 2.5 Mg Tab) 2.5 mg PO DAILY [facility] Last Admin: 03/19/22 08:41 Dose: Not Given Lorazepam (Lorazepam 1 Mg/0.5 Ml Vial) 1 mg IM Q3HR PRN PRN Reason: Agitation Mirtazapine (Mirtazapine 15 Mg Tab) 7.5 mg PO HS [facility] Last Admin: 03/18/22 20:55 Dose: 7.5 mg Miscellaneous Information (Pneumonia Protocol Utilized 1 Each Misc) 1 each PO ONCE PRN PRN Reason: Per Protocol Risperidone (Risperidone 0.5 Mg Tab) 0.5 mg PO Q12H [facility] Last Admin: 03/19/22 17:17 Dose: 0.5 mg PHYSICAL EXAMINATION: GENERAL: The patient is alert and oriented x2, more awake and alert today. thin built ill appearing HEENT: PERRLA. EOMI. no scleral icterus. No conjunctival pallor. Normocephalic, atraumatic. No pharyngeal erythema. No thyromegaly. CARDIOVASCULAR: S1 and S2 muffled PULMONARY: diminished breath sounds bilaterally with course rhonchi and crackles noted. ABDOMEN: soft. non tender on exam non-distended, normoactive bowel sounds. No palpable organomegaly. MUSCULOSKELETAL: No joint swelling or deformity. EXTREMITIES: No cyanosis, clubbing, or pedal edema. NEUROLOGICAL: Gross neurological examination did not reveal any focal deficits. diffusely weak SKIN: No rashes. Assessment: Acute bilateral pneumonia possibly aspiration Acute delirium Dementia CVA, TIA history Hyperlipidemia Multiple medical issues GI prophylaxis DVT prophylaxis No code Plan: Recommend to continue with current medications and management with pulmonary following. Patient is continued on IV zosyn and breathing treatments and IV has been removed by patient multiple times. Diet changed to dysphagia 3 chopped diet with aspiration precautions and will transition to oral and dc fluids. Patient is high risk for aspiration. Currently now on room air. Due to multiple medical issues, prognosis is guarded. [facility]. The impression and plan of care has been dictated by Lorene Villegas, nurse practitioner as directed. MD Magdy I have performed a history and examination and MDM of this patient, discussed the same with the dictator, and agree with the dictator's assessment and plan as written ,documented as a scribe. Based on total visit time, I have performed more than 50% of the visit. Any additional findings or plans will be noted. Objective - Vital Signs Vital signs: Vital Signs Temp 98.1 F 03/19/22 07:48 Pulse 72 03/19/22 07:48 Resp 16 03/19/22 07:48 BP 153/81 03/19/22 07:48 Pulse Ox 94 L 03/19/22 07:48 FiO2 21 03/18/22 07:44 Intake & Output 03/18/22 03/19/22 03/19/22 18:59 06:59 18:59 Output Total 10 Balance -10 Output: Urine 10 Other: Voiding Method Diaper # Voids 3 3 # Bowel Movements 1 - Labs CBC & Chem 7: 03/17/22 06:45 03/17/22 06:45 Labs: Microbiology - Last 24 Hours (Table) 03/17/22 06:45 Blood Culture - Preliminary Blood No Growth after 48 hours
[2022-03-19] MEDS: ACETAMINOPHEN TAB 325 MG TAB PO PRN (20:07)
[2022-03-19] MEDS: ATORVASTATIN 20 MG TAB PO SCH (20:08)
[2022-03-19] MEDS: MIRTAZAPINE 15 MG TAB PO SCH (20:08)
[2022-03-19] MEDS: AMOXIC-POT CLAV 875-125MG 1 EACH TAB PO SCH (20:15)
[2022-03-20] MEDS: FAMOTIDINE 20 MG TAB PO SCH (07:12)
[2022-03-20] MEDS: levETIRAcetam 500 MG TAB PO SCH ×2 (07:12→21:53)
[2022-03-20] MEDS: ESCITALOPRAM 10 MG TAB PO SCH (07:12)
[2022-03-20] MEDS: LACTOBACILLUS ACIDOPH & BULGAR 1 EACH PACKET PO SCH (07:12)
[2022-03-20] MEDS: carvediloL 6.25 MG TAB PO SCH ×2 (07:12→17:00)
[2022-03-20] MEDS: risperiDONE 0.5 MG TAB PO SCH ×2 (07:12→17:00)
[2022-03-20] MEDS: AMOXIC-POT CLAV 875-125MG 1 EACH TAB PO SCH ×2 (07:12→21:53)
[2022-03-20] MEDS: amLODIPine 5 MG TAB PO SCH (07:12)
[2022-03-20] MEDS: IPRATROPIUM-ALBUTEROL 3 ML NEB INHALATION SCH ×3 (07:46→22:13)
--- NOTE | 2022-03-20 12:07 | P.PN ---
Subjective Progress Note Date: 03/20/22 This is a 86 year old male who was recently admitted with bilateral pneumonia and is being closely monitored with pulmonary following. Patient is maintained on breathing inhalational treatments and will continue. Recommend IV abx in the form of zosyn. Patient is more awake today although continues with confusion. Wean FI02 as tolerated and currently room air. Speech therapy attempted swallow eval and patient refused. Patient is extremely high risk for aspiration and will recommend dysphagia diet and strict aspiration precautions. Patient is afebrile with no reported chest pain or shortness of breath. Patient will return to ECF once stable. 03/19/2022 Patient is seen sitting up in the chair this am and much more alert. Patient denies any chest pain or shortness of breath. Patient diet was changed to dysphagia and chopped diet with aspiration precautions and recommend to continue with aspiration precautions. Patient has removed multiple IVs and will transition medications to oral. Patient is scheduled to return to ECF and will follow up with case management about this. Patient is afebrile and denies chest pain or shortness of breath. Patient is on room air. 03/20/2022 Patient is seen today and per nursing staff has eaten all of meals and denies any chest pain or shortness of breath. Patient is afebrile and continues on dysphagia diet. Recommend continuing aspiration precautions. PT/OT to evaluate patient with possible return to ECF in 24 hours. Patient is currently 96% on room air. All medications have been reviewed PHYSICAL EXAMINATION: GENERAL: The patient is alert and oriented x2, more awake and alert today. thin built ill appearing HEENT: PERRLA. EOMI. no scleral icterus. No conjunctival pallor. Normocephalic, atraumatic. No pharyngeal erythema. No thyromegaly. CARDIOVASCULAR: S1 and S2 muffled PULMONARY: diminished breath sounds bilaterally with course rhonchi noted. ABDOMEN: soft. non tender on exam non-distended, normoactive bowel sounds. No palpable organomegaly. MUSCULOSKELETAL: No joint swelling or deformity. EXTREMITIES: No cyanosis, clubbing, or pedal edema. NEUROLOGICAL: Gross neurological examination did not reveal any focal deficits. diffusely weak SKIN: No rashes. Assessment: Acute bilateral pneumonia possibly aspiration Acute delirium Dementia CVA, TIA history Hyperlipidemia Multiple medical issues GI prophylaxis DVT prophylaxis No code Plan: Recommend to continue with current medications and management with pulmonary fol lowing. Patient is continued on oral augmentin and breathing treatments Diet changed to dysphagia 3 chopped diet with aspiration precautions. Patient is high risk for aspiration. Currently now on room air. Due to multiple medical issues, prognosis is guarded. Patient will return to ECF possibly in 24 hours. The impression and plan of care has been dictated as a scribe by Lorene Villegas, nurse practitioner as directed. MD Magdy I have performed a history and examination and MDM of this patient, discussed the same with the dictator, and has been documented as a scribe. Based on total visit time, I have performed more than 50% of the visit. Any additional findings or plans will be noted. Objective - Vital Signs Vital signs: Vital Signs Temp 98.1 F 03/20/22 08:00 Pulse 68 03/20/22 08:00 Resp 17 03/20/22 02:00 BP 169/73 03/20/22 08:00 Pulse Ox 96 03/20/22 08:00 FiO2 21 03/18/22 07:44 Intake & Output 03/19/22 03/20/22 03/20/22 18:59 06:59 18:59 Output Total 203 Balance -203 Output: Urine 203 Other: Voiding Method Diaper Diaper # Voids 3 2 # Bowel Movements 0 1 - Labs CBC & Chem 7: 03/17/22 06:45 03/17/22 06:45 Labs: Microbiology - Last 24 Hours (Table) 03/17/22 06:45 Blood Culture - Preliminary Blood No Growth after 72 hours
[2022-03-20] MEDS: MIRTAZAPINE 15 MG TAB PO SCH (21:53)
[2022-03-20] MEDS: ATORVASTATIN 20 MG TAB PO SCH (21:53)
[2022-03-21] MEDS: risperiDONE 0.5 MG TAB PO SCH ×2 (06:12→17:06)
[2022-03-21] MEDS: carvediloL 6.25 MG TAB PO SCH ×2 (06:12→17:06)
[2022-03-21] MEDS: FAMOTIDINE 20 MG TAB PO SCH (07:57)
[2022-03-21] MEDS: amLODIPine 5 MG TAB PO SCH (07:57)
[2022-03-21] MEDS: AMOXIC-POT CLAV 875-125MG 1 EACH TAB PO SCH (07:57)
[2022-03-21] MEDS: LACTOBACILLUS ACIDOPH & BULGAR 1 EACH PACKET PO SCH (07:58)
[2022-03-21] MEDS: ESCITALOPRAM 10 MG TAB PO SCH (07:58)
[2022-03-21] MEDS: levETIRAcetam 500 MG TAB PO SCH (08:00)
[2022-03-21] MEDS: IPRATROPIUM-ALBUTEROL 3 ML NEB INHALATION SCH ×2 (08:52→12:39)
--- NOTE | 2022-03-21 10:02 | CDI ---
Documentation Clarification Form Date: 03/21/2022 09:46:58 AM From: Rohini SylvesterTuckerSTEFAN bright, CCDS Admit Date: 03/16/2022 04:14:00 PM Patient Name: Epi Metcalf Visit Number: [id number] Discharge Date: ATTENTION: The Clinical Documentation Specialists (CDI) and [facility] Coding Staff appreciate your assistance in clarifying documentation. Please respond to the clarification below the line at the bottom and electronically sign. The CDI & [facility] Coding staff will review the response and follow-up if needed. Please note: Queries are made part of the Legal Health Record. If you have any questions, please contact the author of this message via ITS. Dr. Malena Chamorro: Altered metal status, delirium due to general medical condition is documented in the 03/06 ED Note. Acute delirium is documented in the Attending Physician History & Physical 03/16 and subsequent Progress notes 03/17 through 03/20. Per the 03/19 Attending Physician Progress Note, the patient was more alert. The patient had removed multiple IVs and was transitioned to oral medications. Additional clarification regarding the documented diagnosis of delirium is requested. History/Risk Factors per the 03/16 H/P: CVA, TIA, Hyperlipidemia. Clinical Indicators: Presented to the ED on 03/16 with Altered Mental Status and decreased LOC via EMS from a residential. Suspected decreased oral intake, initially thought he possibly had a seizure. Admit with Altered mental status, Delirium due to general medical condition, Pneumonia, Dehydration. 03/16 VS: T 97.4, P 68, R 16-18, BP 129/74, PO 94 2Lnc, BMI: 20.7 03/16 LAB: Chl 111, BUN 23, Creatinine 0.77, Glucose 65, Calcium 8.3, Total Bilirubin 1.5, Albumin 3.2 03/16 UA: negative. 03/16 Toxicology: Positive for Benzodiazepines. 03/16 RAD: CT Brain: No acute. Suspected advanced chronic microvascular changes. A small acute or hyperacute infarct cannot be excluded. CXR: Correlate for CHF otherwise consider interstitial pneumonitis pneumonia. Treatment 03/16: O2 2Lnc, IV Na Chl 500 mls @ 999 mls/hr q31M, IV Na Chl 1,000 mls @ 130 mls/hr q7H, IV Rocephin 2,000 mg x1, IV Azithromycinn 500 mg 250 mls @ 250 mls/hr x1, Pneumonia protocol, INH Duoneb 3 ml TID/prn, IV Zosyn/Tazobactam 100 mls @ 25 mls/hr q8H, po Risperdal 0.5 mg q12H, IM Ativan 1 mg q3H/prn, IM Haldol 5 mg q6H/prn, po Keppra 500 mg BID, po Remeron 7.5 mg brock. 03/17 DNR, Blood culture, Speech therapy, Physical & Occupational Therapy 03/19: Aspiration precautions No consults. Please clarify the following: [ ] Metabolic Encephalopathy [ ] Toxic Encephalopathy [ ] Other Encephalopathy, please specify: [ ] Other, please specify: [ ] Unable to determine (Template Last Revised: November 2020) Unable to determine MTDD
[2022-03-21 14:11] VITALS: BP 109/67; PULSE 75; RESP 17; TEMP 97.7
--- NOTE | 2022-03-21 15:29 | P.DS ---
Providers Date of admission: 03/16/22 16:14 Expected date of discharge: 03/21/22 Attending physician: Malena Chamorro Primary care physician: Nico Randall MD Hospital Course: Final diagnosis Acute bilateral pneumonia possibly aspiration Acute delirium Possible metabolic encephalopathy secondary to pneumonia, present on admission Dementia CVA, TIA history Hyperlipidemia Multiple medical issues GI prophylaxis DVT prophylaxis No code Discharge disposition Patient is being discharged in a stable condition with guarded prognosis to [facility] for continued PT/OT therapy. Patient will follow-up with Dr. Randall in the outpatient setting upon discharge. Patient is to continue with dysphagia 3 chopped diet and aspiration precautions with head of the bed elevated 30-45 at all times and supervision with meals. Patient has received adequate antibiotic therapy and will not require antibiotics on discharge.. Total time taken is greater than 35 minutes. Hospital course This is an 86-year-old male who was recently admitted with bilateral pneumonia possible aspiration and being closely monitored. Pulmonary evaluated the patient and patient was maintained on IV antibiotics in the form of Zosyn for 5 days. Patient has received adequate antibiotic coverage and will not require antibiotics on discharge. Patient continues to be afebrile and mentation is much improved although patient does continue with some baseline confusion which appears to be chronic. Patient is currently on room air and denies any shortness of breath. Patient tolerating diet and recommend continue with aspiration precautions and dysphagia 3 diet chopped with head of the bed elevated 30-45 and supervision with meals. Recommend continue the patient on breathing inhalational treatments and home medications have been resumed. Patient will be returning to [facility] for continued physical therapy. Currently no reports of chest pain, shortness of breath, or palpitations. Patient is afebrile. No reports of nausea or vomiting and patient is tolerating diet. [facility] [place] [facility]. Guarded prognosis. On exam vital signs are stable. Cardio S1, S2 are muffled. Respiratory system shows diminished breath sounds at the bases with no wheezing or rhonchi noted. Abdomen is soft and nontender. Nervous system shows diffuse weakness. Please refer to medication reconciliation sheet for a list of medications. The impression and plan of care has been dictated by Lorene Villegas, Nurse Practitioner as directed. Dr. Pedro Pablo MD I have performed a history and examination and MDM of this patient, discussed the same with the dictator, and agree with the dictator's assessment and plan as written ,documented as a scribe. Based on total visit time, I have performed more than 50% of the visit. Patient Condition at Discharge: Fair Plan - Discharge Summary New Discharge Prescriptions: New Amoxic-Pot Clav 875-125Mg [Augmentin 875-125] 1 each PO Q12HR 5 Days #10 tab Ipratropium-Albuterol Nebulize [Duoneb 0.5 mg-3 mg/3 ml Soln] 3 ml INHALATION RT-TID each Ipratropium-Albuterol Nebulize [Duoneb 0.5 mg-3 mg/3 ml Soln] 3 ml INHALATION RT-TID PRN each PRN Reason: Shortness Of Breath Or Wheezing Continue Atorvastatin Calcium 20 mg PO HS Escitalopram [Lexapro] 10 mg PO DAILY Famotidine [Pepcid] 20 mg PO DAILY Lactobacillus Acidophilus [Acidophilus] 1 tab PO DAILY Mirtazapine 7.5 mg PO HS Acetaminophen [Tylenol] 650 mg PO Q6H PRN PRN Reason: Pain Or Fever > 100.5 amLODIPine [Norvasc] 5 mg PO DAILY carvediloL [Coreg] 6.25 mg PO Q12H Hydrocortisone Cream [Hydrocortisone 1% Cream] 1 applic TOPICAL BID levETIRAcetam [Keppra] 500 mg PO BID lisinopriL [Zestril] 2.5 mg PO DAILY Menthol-Zinc Oxide Oint [Calmoseptine Ointment] 1 applic TOPICAL Q12H risperiDONE [RisperDAL] 0.5 mg PO Q12H Discharge Medication List Acetaminophen [Tylenol] 650 mg PO Q6H PRN 03/16/22 [History] Atorvastatin Calcium 20 mg PO HS 03/16/22 [History] Escitalopram [Lexapro] 10 mg PO DAILY 03/16/22 [History] Famotidine [Pepcid] 20 mg PO DAILY 03/16/22 [History] Hydrocortisone Cream [Hydrocortisone 1% Cream] 1 applic TOPICAL BID 03/16/22 [History] Lactobacillus Acidophilus [Acidophilus] 1 tab PO DAILY 03/16/22 [History] Menthol-Zinc Oxide Oint [Calmoseptine Ointment] 1 applic TOPICAL Q12H 03/16/22 [History] Mirtazapine 7.5 mg PO HS 03/16/22 [History] amLODIPine [Norvasc] 5 mg PO DAILY 03/16/22 [History] carvediloL [Coreg] 6.25 mg PO Q12H 03/16/22 [History] levETIRAcetam [Keppra] 500 mg PO BID 03/16/22 [History] lisinopriL [Zestril] 2.5 mg PO DAILY 03/16/22 [History] risperiDONE [RisperDAL] 0.5 mg PO Q12H 03/16/22 [History] Amoxic-Pot Clav 875-125Mg [Augmentin 875-125] 1 each PO Q12HR 5 Days #10 tab 03/21/22 [Rx] Ipratropium-Albuterol Nebulize [Duoneb 0.5 mg-3 mg/3 ml Soln] 3 ml INHALATION RT-TID each 03/21/22 [Rx] Ipratropium-Albuterol Nebulize [Duoneb 0.5 mg-3 mg/3 ml Soln] 3 ml INHALATION RT-TID PRN each 03/21/22 [Rx] Follow up Appointment(s)/Referral(s): Nico Randall MD [Primary Care Provider] - 1-2 days Ambulatory/Diagnostic Orders: Complete Blood Count w/diff [LAB.AMB] Time Frame: 3 Days, Location: None Selected Activity/Diet/Wound Care/Special Instructions: Activity as tolerated Patient is returning to [facility] Recommend to continue with dysphasia 3 chopped diet Recommend aspiration percussions and maintaining the head of the bed 30-45 at all times and supervision with meals Recommend to continue with antibiotics for the next 5 days to complete the course Recommend follow-up with primary care provider on discharge Recommend repeat CBC and BMP in 2-3 days Discharge Disposition: TRANSFER TO SNF/ECF
== END 2022-03-21 19:22 | DRG 177 ==
LOC: EC 11:52 → 4SSUR 16:14
PROVIDERS: ADMIT Hospitalist; ATTEND Hospitalist
DX: J69.0 Pneumonitis due to inhalation of food and vomit (principal); G93.41 Metabolic encephalopathy; I63.9 Cerebral infarction, unspecified; F05 Delirium due to known physiological condition; N39.0 Urinary tract infection, site not specified; F03.90 Unspecified dementia, unspecified severity, without behavioral disturbance, psychotic disturbance, mood disturbance, and anxiety; Z86.73 Personal history of transient ischemic attack (TIA), and cerebral infarction without residual deficits; E78.5 Hyperlipidemia, unspecified; Z79.899 Other long term (current) drug therapy; Z90.49 Acquired absence of other specified parts of digestive tract; E86.0 Dehydration; Z66 Do not resuscitate
CPT/HCPCS: 36415; 70450; 71045; 71046; 80053; 80306; 81003; 82140; 83880; 84484; 85025; 85610; 85730; 87040; 93005; 94640; 94760; 96360; 96365; 96366; 96368; 96372; 96375; 99285

== ENCOUNTER 2022-04-20 09:16 | Observation (INO) | payer MEDICARE ==
--- NOTE | 2022-04-20 09:37 | ED ---
General Adult HPI - General Chief complaint: Altered Mental Status Stated complaint: altermental status Time Seen by Provider: 04/20/22 09:25 Source: patient, EMS, RN notes reviewed Mode of arrival: EMS Limitations: altered mental status - History of Present Illness Initial comments: Patient is a pleasant 86-year-old male presenting to the emergency department with concerns for general weakness. Patient comes from nursing facility with several falls over the past week. Patient has also been reportedly more confused. Patient admits to having recent falls however denies any weakness or confusion. Patient recently was seen at [facility] and did have repair of head injury. Further history is limited. - Related Data Home Medications Medication Instructions Recorded Confirmed Acetaminophen [Tylenol] 650 mg PO Q6H PRN 03/16/22 03/16/22 Atorvastatin Calcium 20 mg PO HS 03/16/22 03/16/22 Escitalopram [Lexapro] 10 mg PO DAILY 03/16/22 03/16/22 Famotidine [Pepcid] 20 mg PO DAILY 03/16/22 03/16/22 Hydrocortisone Cream 1 applic TOPICAL BID 03/16/22 03/16/22 [Hydrocortisone 1% Cream] Lactobacillus Acidophilus 1 tab PO DAILY 03/16/22 03/16/22 [Acidophilus] Menthol-Zinc Oxide Oint 1 applic TOPICAL Q12H 03/16/22 03/16/22 [Calmoseptine Ointment] Mirtazapine 7.5 mg PO HS 03/16/22 03/16/22 amLODIPine [Norvasc] 5 mg PO DAILY 03/16/22 03/16/22 carvediloL [Coreg] 6.25 mg PO Q12H 03/16/22 03/16/22 levETIRAcetam [Keppra] 500 mg PO BID 03/16/22 03/16/22 lisinopriL [Zestril] 2.5 mg PO DAILY 03/16/22 03/16/22 risperiDONE [RisperDAL] 0.5 mg PO Q12H 03/16/22 03/16/22 Previous Rx's Medication Instructions Recorded Ipratropium-Albuterol Nebulize 3 ml INHALATION RT-TID each 03/21/22 [Duoneb 0.5 mg-3 mg/3 ml Soln] Ipratropium-Albuterol Nebulize 3 ml INHALATION RT-TID PRN each 03/21/22 [Duoneb 0.5 mg-3 mg/3 ml Soln] Allergies Allergy/AdvReac Type Severity Reaction Status Date / Time No Known Allergies Allergy Verified 03/16/22 15:09 Review of Systems ROS Statement: Those systems with pertinent positive or pertinent negative responses have been documented in the HPI. ROS Other: All systems not noted in ROS Statement are negative. Constitutional: Denies: fever Eyes: Denies: eye pain ENT: Denies: ear pain Respiratory: Denies: cough, dyspnea Cardiovascular: Denies: chest pain Endocrine: Denies: fatigue Gastrointestinal: Denies: abdominal pain Genitourinary: Denies: dysuria Musculoskeletal: Denies: back pain Skin: Denies: rash Neurological: Reports: as per HPI Past Medical History Past Medical History: CVA/TIA, Hyperlipidemia, Seizure Disorder Additional Past Medical History / Comment(s): seizure disorder diagnosed 03/15/22 History of Any Multi-Drug Resistant Organisms: None Reported Past Surgical History: Bowel Resection Additional Past Surgical History / Comment(s): cervical 2018 Past Psychological History: No Psychological Hx Reported Smoking Status: Former smoker Past Alcohol Use History: Occasional Past Drug Use History: None Reported General Exam Limitations: altered mental status General appearance: alert, in no apparent distress Head exam: Present: other (Right scalp Steri-Strips) Eye exam: Present: normal appearance, PERRL, EOMI ENT exam: Present: normal oropharynx Neck exam: Present: normal inspection. Absent: tenderness, meningismus Respiratory exam: Present: normal lung sounds bilaterally Cardiovascular Exam: Present: regular rate, normal rhythm GI/Abdominal exam: Present: soft. Absent: tenderness Extremities exam: Present: normal inspection, full ROM. Absent: tenderness Neurological exam: Present: alert, CN II-XII intact. Absent: motor sensory deficit Expanded Neurological exam: Present: protecting the airway Patient oriented to: Present: person. Absent: place, time (2019) Speech: Present: fluid speech Cranial nerves: EOM's Intact: Normal Motor strength exam: RUE: 5, LUE: 5, RLE: 5, LLE: 5 Eye Response: (4) open spontaneously Motor Response: (6) obeys commands Verbal Response: (4) confused conversation Psychiatric exam: Present: normal affect, normal mood Skin exam: Present: other (Steri-Strips right scalp/forehead region) Course Vital Signs 04/20/22 09:20 Temperature 97.4 F L Pulse Rate 66 Respiratory 18 Rate Blood Pressure 147/69 O2 Sat by Pulse 97 Oximetry EKG Findings - EKG Comments: EKG Findings:: Sinus rhythm rate 65. OR 155. QRS 97. QT 425. QTC 436. Left axis. Normal QRS. No acute ST change. Medical Decision Making - Medical Decision Making Patient reevaluated and updated. Case was discussed with Dr. Macias, who will admit covering - Lab Data Result diagrams: 04/20/22 10:01 04/20/22 10:01 Lab Results 04/20/22 04/20/22 04/20/22 Range/Units 10:01 10:01 10:01 WBC 7.0 (3.8-10.6) k/uL RBC 4.07 L (4.30-5.90) m/uL Hgb 12.3 L (13.0-17.5) gm/dL Hct 37.8 L (39.0-53.0) % MCV 93.0 (80.0-100.0) fL MCH 30.1 (25.0-35.0) pg MCHC 32.4 (31.0-37.0) g/dL RDW 13.7 (11.5-15.5) % Plt Count 287 (150-450) k/uL MPV 7.1 Neutrophils % 70 % Lymphocytes % 16 % Monocytes % 9 % Eosinophils % 3 % Basophils % 1 % Neutrophils # 4.9 (1.3-7.7) k/uL Lymphocytes # 1.1 (1.0-4.8) k/uL Monocytes # 0.6 (0-1.0) k/uL Eosinophils # 0.2 (0-0.7) k/uL Basophils # 0.1 (0-0.2) k/uL PT 11.0 (9.0-12.0) sec INR 1.0 (<1.2) APTT 24.1 (22.0-30.0) sec Sodium 143 (137-145) mmol/L Potassium 4.4 (3.5-5.1) mmol/L Chloride 115 H (98-107) mmol/L Carbon Dioxide 23 (22-30) mmol/L Anion Gap 5 mmol/L BUN 22 H (9-20) mg/dL Creatinine 0.82 (0.66-1.25) mg/dL Est GFR (CKD-EPI)AfAm >90 (>60 ml/min/1.73 sqM) Est GFR (CKD-EPI)NonAf 80 (>60 ml/min/1.73 sqM) Glucose 88 (74-99) mg/dL Plasma Lactic Acid Petey (0.7-2.0) mmol/L Calcium 8.3 L (8.4-10.2) mg/dL Magnesium 1.8 (1.6-2.3) mg/dL Total Bilirubin 0.9 (0.2-1.3) mg/dL AST 20 (17-59) U/L ALT 13 (4-49) U/L Alkaline Phosphatase 60 (38-126) U/L Troponin I (0.000-0.034) ng/mL Total Protein 6.1 L (6.3-8.2) g/dL Albumin 3.0 L (3.5-5.0) g/dL Urine Color Urine Appearance (Clear) Urine pH (5.0-8.0) Ur Specific Dix (1.001-1.035) Urine Protein (Negative) Urine Glucose (UA) (Negative) Urine Ketones (Negative) Urine Blood (Negative) Urine Nitrite (Negative) Urine Bilirubin (Negative) Urine Urobilinogen (<2.0) mg/dL Ur Leukocyte Esterase (Negative) Urine RBC (0-5) /hpf Urine WBC (0-5) /hpf Ur Squamous Epith Cells (0-4) /hpf Urine Bacteria (None) /hpf Urine Mucus (None) /hpf 04/20/22 04/20/22 04/20/22 Range/Units 10:01 10:01 11:34 WBC (3.8-10.6) k/uL RBC (4.30-5.90) m/uL Hgb (13.0-17.5) gm/dL Hct (39.0-53.0) % MCV (80.0-100.0) fL MCH (25.0-35.0) pg MCHC (31.0-37.0) g/dL RDW (11.5-15.5) % Plt Count (150-450) k/uL MPV Neutrophils % % Lymphocytes % % Monocytes % % Eosinophils % % Basophils % % Neutrophils # (1.3-7.7) k/uL Lymphocytes # (1.0-4.8) k/uL Monocytes # (0-1.0) k/uL Eosinophils # (0-0.7) k/uL Basophils # (0-0.2) k/uL PT (9.0-12.0) sec INR (<1.2) APTT (22.0-30.0) sec Sodium (137-145) mmol/L Potassium (3.5-5.1) mmol/L Chloride (98-107) mmol/L Carbon Dioxide (22-30) mmol/L Anion Gap mmol/L BUN (9-20) mg/dL Creatinine (0.66-1.25) mg/dL Est GFR (CKD-EPI)AfAm (>60 ml/min/1.73 sqM) Est GFR (CKD-EPI)NonAf (>60 ml/min/1.73 sqM) Glucose (74-99) mg/dL Plasma Lactic Acid Petey 0.9 (0.7-2.0) mmol/L Calcium (8.4-10.2) mg/dL Magnesium (1.6-2.3) mg/dL Total Bilirubin (0.2-1.3) mg/dL AST (17-59) U/L ALT (4-49) U/L Alkaline Phosphatase (38-126) U/L Troponin I <0.012 (0.000-0.034) ng/mL Total Protein (6.3-8.2) g/dL Albumin (3.5-5.0) g/dL Urine Color Yellow Urine Appearance Cloudy (Clear) Urine pH 7.0 (5.0-8.0) Ur Specific Dix 1.019 (1.001-1.035) Urine Protein 1+ H (Negative) Urine Glucose (UA) Negative (Negative) Urine Ketones Negative (Negative) Urine Blood Negative (Negative) Urine Nitrite Negative (Negative) Urine Bilirubin Negative (Negative) Urine Urobilinogen <2.0 (<2.0) mg/dL Ur Leukocyte Esterase Large H (Negative) Urine RBC 4 (0-5) /hpf Urine WBC >182 H (0-5) /hpf Ur Squamous Epith Cells 1 (0-4) /hpf Urine Bacteria Few H (None) /hpf Urine Mucus Rare H (None) /hpf - Radiology Data Radiology results: report reviewed (CT brain shows no acute process. Remote lacunar injury.), image reviewed (Chest x-ray shows right basilar airspace opacity) Disposition Clinical Impression: Altered mental status, Urinary tract infection Disposition: ADMITTED IP TO THIS HOSP Is patient prescribed a controlled substance at d/c from ED?: No Referrals: None,Stated [REFERRING] - 1-2 days Time of Disposition: 13:13
[2022-04-20 10:28] LABS: Partial Thromboplastin Time 24.1 sec (22.0-30.0)
[2022-04-20 10:35] LABS: ALT 13 U/L (4-49); AST 20 U/L (17-59); African American GFR (CKD) >90 (>60 ml/min/1.73 sqM); Alkaline Phosphatase 60 U/L (38-126); Anion Gap 5 mmol/L; Blood Urea Nitrogen 22 mg/dL (9-20); Calcium 8.3 mg/dL (8.4-10.2); Carbon Dioxide 23 mmol/L (22-30); Chloride 115 mmol/L (98-107); Glucose 88 mg/dL (74-99); Magnesium 1.8 mg/dL (1.6-2.3); Non-African American GFR(CKD) 80 (>60 ml/min/1.73 sqM); Potassium 4.4 mmol/L (3.5-5.1); Sodium 143 mmol/L (137-145); Total Bilirubin 0.9 mg/dL (0.2-1.3); Total Protein 6.1 g/dL (6.3-8.2)
[2022-04-20 10:48] LABS: Basophils # (A) 0.1 k/uL (0-0.2); Basophils % (A) 1 %; Eosinophils # (A) 0.2 k/uL (0-0.7); Eosinophils % (A) 3 %; HCT 37.8 % (39.0-53.0); HGB 12.3 gm/dL (13.0-17.5); Lymphocytes # (A) 1.1 k/uL (1.0-4.8); Lymphocytes % (A) 16 %; MCH 30.1 pg (25.0-35.0); MCHC 32.4 g/dL (31.0-37.0); Mean Platelet Volume 7.1; Monocytes # (A) 0.6 k/uL (0-1.0); Monocytes % (A) 9 %; Neutrophils # (A) 4.9 k/uL (1.3-7.7); Neutrophils % (A) 70 %; Platelet Count 287 k/uL (150-450); RBC 4.07 m/uL (4.30-5.90); RDW 13.7 % (11.5-15.5)
--- NOTE | 2022-04-20 10:59 | XR ---
EXAMINATION TYPE: XR chest 2V DATE OF EXAM: 04/20/2022 10:46 AM COMPARISON: Chest radiographs from 03/19/2022, 03/17/2022. TECHNIQUE: XR chest 2V Frontal and lateral views of the chest. CLINICAL INDICATION:Male, 86 years old with history of Weakness; FINDINGS: Lungs/Pleura: There is flattening of the diaphragm with increased lucency of the lungs. No evidence o f pneumothorax or pleural effusion. Right medial basilar airspace opacities. Heart/mediastinum: Cardiomediastinal silhouette is stable. Atherosclerotic calcifications are seen i n the aorta. Musculoskeletal: No acute osseous pathology. Partial visualization of cervical fusion hardware. IMPRESSION: * Right medial basilar airspace opacities which may represent atelectasis versus pneumonia in the ap propriate clinical setting. * COPD changes.
--- NOTE | 2022-04-20 11:03 | CT ---
EXAMINATION TYPE: CT brain wo con CT DLP: 1129 mGycm, Automated exposure control for dose reduction was used. DATE OF EXAM: 04/20/2022 11:00 AM COMPARISON: Prior CT Brain from 02/17/2022. CLINICAL INDICATION:Male, 86 years old with history of weakness, TECHNIQUE: Brain: Multiple axial CT images of the brain were obtained without IV contrast. Coronal and sagittal reformats reviewed. FINDINGS: Brain: Extra-axial spaces: No abnormal extra-axial fluid collections. Ventricular system: Dilatation in proportion to cerebral atrophy. Cerebral parenchyma: No acute intraparenchymal hemorrhage or mass effect. The myers-white junction is well differentiated. Tiny lentiform right nucleus chronic lacunar infarct. Confluent hypoattenuating areas are seen within the periventricular and subcortical white matter. Cerebral volume loss. Cerebellum: Unremarkable. Mass effect: No evidence of midline shift. Intracranial vasculature: Atherosclerotic calcifications of the intracranial vessels. Soft tissues: Right posterior parietal subcutaneous inocente identified. Calvarium/osseous structures: No depressed skull fracture. Paranasal sinuses and mastoid air cells: Clear Visualized orbits: Bilateral aphakia IMPRESSION: * No acute intracranial process. 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
[2022-04-20 12:13] LABS: Appearance,Urine Cloudy (Clear); Bacteria,Urine Few /hpf; Bilirubin,Urine Negative (Negative); Blood,Urine Negative (Negative); Color,Urine Yellow; Glucose,Urine (UA) Negative (Negative); Ketones,Urine Negative (Negative); Leukocyte Esterase,Urine Large (Negative); Mucus,Urine Rare /hpf; Nitrite,Urine Negative (Negative); Protein,Urine 1+ (Negative); RBC,Urine 4 /hpf (0-5); Specific Gravity,Urine 1.019 (1.001-1.035); Squamous Epithelial Cell,Urine 1 /hpf (0-4); Urobilinogen,Urine <2.0 mg/dL (<2.0); WBC,Urine >182 /hpf (0-5)
[2022-04-20] MEDS ORDERED: NALOXONE 0.4 MG/ML 1 ML VIAL IV PRN (13:15)
[2022-04-20] MEDS ORDERED: ACETAMINOPHEN TAB 325 MG TAB PO PRN (13:15)
[2022-04-20] MEDS ORDERED: IPRATROPIUM-ALBUTEROL 3 ML NEB INHALATION PRN (13:39)
--- NOTE | 2022-04-20 14:39 | P.HPIM ---
History of Present Illness H&P Date: 04/20/22 Chief Complaint: Weakness Patient is an 86 year old male with PMH of COPD, history of CVA, hypertension, seizure disorder presents the ED for generalized weakness and altered mentation. Patient was sent from [facility] for weakness and inability to stand up. Documentation also reports that patient is more confused. Patient himself reports dysuria and urinary frequency. He has no other complaints. He denies any headache, lower shunt edema, nausea vomiting, fever or chills, cough, chest pain, shortness breath, palpitations, changes in bowel habits. No changes in appetite or weight. He denies any dizziness, numbness/weakness/tingling of the extremities. The ED, vital signs are stable. CBC showed hemoglobin of 12.3. CMP showed chloride 115, BUN of 22, albumin of 3. Urinalysis shows large leukocyte esterase. Chest x-ray showed right medial basilar airspace opacity atelectasis versus pneumonia, COPD changes. CT head showed remote lacunar injury that appears chronic in nature. Patient is admitted for acute metabolic encephalopathy secondary to urinary tract infection. Review of systems is performed and is negative except above. General: [non toxic], [no distress], [appears at stated age] Derm: [warm], [dry] Head: [atraumatic], [normocephalic], [symmetric] Eyes: [EOMI], [no lid lag], [anicteric sclera] Mouth: [no lip lesion], [mucus membranes moist] Cardiovascular: [S1S2 reg], [no murmur], [positive DP pulse bilateral] Lungs: [CTA bilateral], [no rhonchi, no rales] , [no accessory muscle use] Abdominal: [soft], [ nontender to palpation], [no guarding], [no appreciable organomegaly] Ext: [no gross muscle atrophy], [no edema], [no contractures] Neuro: [ CN II-XI grossly intact], [no focal neuro deficits] Psych: [AOx1], [appropriate affect] #Acute metabolic encephalopathy #Generalized weakness #Urinary tract infection #Elevated BUN #Normocytic anemia Chronic conditions: COPD, history of CVA, hypertension, seizure disorder Patient presents with altered mentation and generalized weakness thought to be related to UTI. CT brain appears to show chronic findings. UA is + for leukocyte esterase. Patient will be started on Rocephin and urine culture will be obtained. Blood cultures are ordered. PT and OT is consulted to work with this patient. Elevated BUN likely related to dehydration. Hydrate overnight with normal saline at 75 cc/hr. Repeat BMP tomorrow morning. Normocytic anemia is of unknown origin. Continue to monitor for now. DuoNebs as needed for shortness of breath or wheezing. Continue ASA and Lipitor for history of CVA. Restart Coreg and Lisinopril for hypertension. Keppra restarted for seizure disorder. DVT prophylaxis: [Heparin] Discussed with: [Patient, ED physician] Anticipated discharge: [1-2 days] Anticipated discharge place: [[facility]] A total of [40] minutes was spent on the care of this complex patient more than 50% of the time was spent in counseling and care coordination. Past Medical History Past Medical History: CVA/TIA, Hyperlipidemia, Seizure Disorder Additional Past Medical History / Comment(s): seizure disorder diagnosed 03/15/22 History of Any Multi-Drug Resistant Organisms: None Reported Past Surgical History: Bowel Resection Additional Past Surgical History / Comment(s): cervical 2018 Past Psychological History: No Psychological Hx Reported Smoking Status: Former smoker Past Alcohol Use History: Occasional Past Drug Use History: None Reported Medications and Allergies Home Medications Medication Instructions Recorded Confirmed Type Acetaminophen [Tylenol] 650 mg PO Q6H PRN 03/16/22 03/16/22 History Atorvastatin Calcium 20 mg PO HS 03/16/22 03/16/22 History Escitalopram [Lexapro] 10 mg PO DAILY 03/16/22 03/16/22 History Famotidine [Pepcid] 20 mg PO DAILY 03/16/22 03/16/22 History Hydrocortisone Cream 1 applic TOPICAL BID 03/16/22 03/16/22 History [Hydrocortisone 1% Cream] Lactobacillus Acidophilus 1 tab PO DAILY 03/16/22 03/16/22 History [Acidophilus] Menthol-Zinc Oxide Oint 1 applic TOPICAL Q12H 03/16/22 03/16/22 History [Calmoseptine Ointment] Mirtazapine 7.5 mg PO HS 03/16/22 03/16/22 History amLODIPine [Norvasc] 5 mg PO DAILY 03/16/22 03/16/22 History carvediloL [Coreg] 6.25 mg PO Q12H 03/16/22 03/16/22 History levETIRAcetam [Keppra] 500 mg PO BID 03/16/22 03/16/22 History lisinopriL [Zestril] 2.5 mg PO DAILY 03/16/22 03/16/22 History risperiDONE [RisperDAL] 0.5 mg PO Q12H 03/16/22 03/16/22 History Ipratropium-Albuterol Nebulize 3 ml INHALATION RT-TID each 03/21/22 Rx [Duoneb 0.5 mg-3 mg/3 ml Soln] Ipratropium-Albuterol Nebulize 3 ml INHALATION RT-TID PRN each 03/21/22 Rx [Duoneb 0.5 mg-3 mg/3 ml Soln] Allergies Allergy/AdvReac Type Severity Reaction Status Date / Time No Known Allergies Allergy Verified 03/16/22 15:09 Physical Exam Vitals: Vital Signs Temp Pulse Resp BP Pulse Ox 04/20/22 09:20 97.4 F L 66 18 147/69 97 Intake and Output 04/19/22 04/20/22 04/20/22 22:59 06:59 14:59 Other: Weight 81.647 kg Results CBC & Chem 7: 04/20/22 10:01 04/20/22 10:01 Labs: Abnormal Lab Results - Last 24 Hours (Table) 04/20/22 04/20/22 04/20/22 Range/Units 10:01 10:01 11:34 RBC 4.07 L (4.30-5.90) m/uL Hgb 12.3 L (13.0-17.5) gm/dL Hct 37.8 L (39.0-53.0) % Chloride 115 H (98-107) mmol/L BUN 22 H (9-20) mg/dL Calcium 8.3 L (8.4-10.2) mg/dL Total Protein 6.1 L (6.3-8.2) g/dL Albumin 3.0 L (3.5-5.0) g/dL Urine Protein 1+ H (Negative) Ur Leukocyte Esterase Large H (Negative) Urine WBC >182 H (0-5) /hpf Urine Bacteria Few H (None) /hpf Urine Mucus Rare H (None) /hpf
[2022-04-20] MEDS: risperiDONE 0.5 MG TAB PO SCH ×2 (16:15→22:33)
[2022-04-20] MEDS: SODIUM CHLORIDE 0.9% 1,000 ML IV SCH (16:15)
[2022-04-20] MEDS: carvediloL 6.25 MG TAB PO SCH (18:45)
[2022-04-20] MEDS: MIRTAZAPINE 15 MG TAB PO SCH (22:32)
[2022-04-20] MEDS: HEPARIN SODIUM,PORCINE/PF 5,000 UNIT/0.5 ML SYRINGE SQ SCH (22:33)
[2022-04-20] MEDS: levETIRAcetam 500 MG TAB PO SCH (22:33)
[2022-04-20] MEDS: ATORVASTATIN 20 MG TAB PO SCH (22:33)
[2022-04-21] MEDS: SODIUM CHLORIDE 0.9% 1,000 ML IV SCH (03:16)
[2022-04-21] MEDS: HEPARIN SODIUM,PORCINE/PF 5,000 UNIT/0.5 ML SYRINGE SQ SCH ×2 (08:43→21:44)
[2022-04-21] MEDS: ASPIRIN 81 MG PO SCH (08:43)
[2022-04-21] MEDS: risperiDONE 0.5 MG TAB PO SCH ×2 (08:43→21:44)
[2022-04-21] MEDS: FAMOTIDINE 20 MG TAB PO SCH (08:43)
[2022-04-21] MEDS: carvediloL 6.25 MG TAB PO SCH ×2 (08:43→16:38)
[2022-04-21] MEDS: amLODIPine 5 MG TAB PO SCH (08:43)
--- NOTE | 2022-04-21 11:31 | P.PN ---
Subjective Progress Note Date: 04/21/22 Principal diagnosis: Confusion Patient was seen and examined. No acute events overnight. Patient with no complaints. He is AO x 0-1. No concerns from nursing. Objective - Vital Signs Vital signs: Vital Signs Temp 97.3 F L 04/21/22 08:00 Pulse 75 04/21/22 08:00 Resp 18 04/21/22 08:00 BP 149/76 04/21/22 08:00 Pulse Ox 92 L 04/21/22 08:00 FiO2 Intake & Output 04/20/22 04/21/22 04/21/22 18:59 06:59 18:59 Weight 81.647 kg Other: Voiding Method Urinal - Exam General: [non toxic], [no distress], [appears at stated age] Derm: [warm], [dry] Head: [atraumatic], [normocephalic], [symmetric] Eyes: [EOMI], [no lid lag], [anicteric sclera] Mouth: [no lip lesion], [mucus membranes moist] Cardiovascular: [S1S2 reg], [no murmur] Lungs: [CTA bilateral], [no rhonchi, no rales] , [no accessory muscle use] Abdominal: [soft], [ nontender to palpation] Ext: [no gross muscle atrophy], [no edema], [no contractures] Neuro: [no focal neuro deficits] Psych: [AOx1], [appropriate affect] - Labs CBC & Chem 7: 04/20/22 10:01 04/20/22 10:01 Labs: Abnormal Lab Results - Last 24 Hours (Table) 04/20/22 Range/Units 11:34 Urine Protein 1+ H (Negative) Ur Leukocyte Esterase Large H (Negative) Urine WBC >182 H (0-5) /hpf Urine Bacteria Few H (None) /hpf Urine Mucus Rare H (None) /hpf Microbiology - Last 24 Hours (Table) 04/20/22 11:34 Urine Culture - Preliminary Urine,Voided Assessment and Plan Assessment: #Acute metabolic encephalopathy #Generalized weakness #Urinary tract infection #Elevated BUN #Normocytic anemia Chronic conditions: COPD, history of CVA, hypertension, seizure disorder Patient presents with altered mentation and generalized weakness thought to be related to UTI. CT brain appears to show chronic findings. UA is + for leukocyte esterase. Patient will be started on Rocephin and urine culture will be obtained. Blood cultures are ordered. PT and OT is consulted to work with this patient. Elevated BUN likely related to dehydration. DC IVF and encourage hydration by mouth. Normocytic anemia is of unknown origin. Continue to monitor for now. DuoNebs as needed for shortness of breath or wheezing. Continue ASA and Lipitor for history of CVA. Restart Coreg and Lisinopril for hypertension. Keppra restarted for seizure disorder. DVT prophylaxis: [Heparin] Discussed with: [Patient, nursing] Anticipated discharge: [1-2 days] Anticipated discharge place: [[facility]]
[2022-04-21 11:47] LABS: Basophils # (A) 0.06 X 10*3/uL (0.00-0.10); Basophils % (A) 0.9 %; Eosinophils # (A) 0.21 X 10*3/uL (0.04-0.35); HCT 37.2 % (39.6-50.0); HGB 11.8 g/dL (13.0-17.0); Immature Grans, Automated 0.4 %; Lymphocytes # (A) 1.41 X 10*3/uL (0.90-5.00); Lymphocytes % (A) 20.1 %; MCH 29.6 pg (27.0-32.0); MCHC 31.7 g/dL (32.0-37.0); MCV 93.2 fL (80.0-97.0); Mean Platelet Volume 9.2 fL (9.5-12.2); Monocytes % (A) 11.4 %; NRBC Per 100 WBC 0 /100 WBCS (0.0-0.0); Neutrophils # (A) 4.49 X 10*3/uL (1.80-7.70); Neutrophils % (A) 64.2 %; Platelet Count 295 X 10*3/uL (140-440); RBC 3.99 X 10*6/uL (4.40-5.60); RDW 13.7 % (11.5-14.5)
[2022-04-21 12:00] LABS: African American GFR (CKD) 69.6 (60.0-200.0); Anion Gap 9.5 mmol/L (10.00-18.00); BUN/Creat Ratio 16.91 Ratio (12.00-20.00); Blood Urea Nitrogen 18.6 mg/dL (9.0-27.0); Calcium 8.8 mg/dL (8.7-10.3); Carbon Dioxide 24.5 mmol/L (20.0-27.5); Potassium 4.3 mmol/L (3.5-5.5)
[2022-04-21] MEDS: levETIRAcetam 500 MG TAB PO SCH ×3 (12:32→21:44)
[2022-04-21] MEDS: MIRTAZAPINE 15 MG TAB PO SCH (21:44)
[2022-04-21] MEDS: ATORVASTATIN 20 MG TAB PO SCH (21:44)
[2022-04-21] MEDS ORDERED: QUEtiapine 25 MG TAB PO STA (23:57)
[2022-04-22] MEDS: amLODIPine 5 MG TAB PO SCH (09:42)
[2022-04-22] MEDS: HEPARIN SODIUM,PORCINE/PF 5,000 UNIT/0.5 ML SYRINGE SQ SCH ×2 (09:42→21:51)
[2022-04-22] MEDS: ASPIRIN 81 MG PO SCH (09:42)
[2022-04-22] MEDS: FAMOTIDINE 20 MG TAB PO SCH (09:42)
[2022-04-22] MEDS: carvediloL 6.25 MG TAB PO SCH ×2 (09:43→17:55)
[2022-04-22] MEDS: risperiDONE 0.5 MG TAB PO SCH ×2 (10:05→21:52)
[2022-04-22] MEDS: levETIRAcetam 500 MG TAB PO SCH ×2 (10:05→21:52)
--- NOTE | 2022-04-22 12:21 | P.PN ---
Subjective Progress Note Date: 04/22/22 Principal diagnosis: Confusion Patient was seen and examined. No acute events overnight. Patient with no complaints. He is AO x 0-1. No concerns from nursing. Objective - Vital Signs Vital signs: Vital Signs Temp 97.6 F 04/22/22 08:00 Pulse 72 04/22/22 08:00 Resp 16 04/22/22 08:00 BP 110/68 04/22/22 08:00 Pulse Ox 96 04/22/22 08:00 FiO2 Intake & Output 04/21/22 04/22/22 04/22/22 18:59 06:59 18:59 Intake Total 50 Balance 50 Intake: Intake, IV Titration 50 Amount cefTRIAXone 2 gm In 50 Sodium Chloride 0.9% 50 ml @ 100 mls/hr IVPB Q24HR [facility] Rx#:[id number] Other: Voiding Method Urinal # Voids 4 2 - Exam General: [non toxic], [no distress], [appears at stated age] Derm: [warm], [dry] Head: [atraumatic], [normocephalic], [symmetric] Eyes: [EOMI], [no lid lag], [anicteric sclera] Mouth: [no lip lesion], [mucus membranes moist] Cardiovascular: [S1S2 reg], [no murmur] Lungs: [CTA bilateral], [no rhonchi, no rales] , [no accessory muscle use] Abdominal: [soft], [ nontender to palpation] Ext: [no gross muscle atrophy], [no edema], [no contractures] Neuro: [no focal neuro deficits] Psych: [AOx1], [appropriate affect] - Labs CBC & Chem 7: 04/21/22 07:13 04/21/22 07:13 Labs: Microbiology - Last 24 Hours (Table) 04/20/22 15:35 Blood Culture - Preliminary Blood No Growth after 24 hours 04/20/22 15:20 Blood Culture - Preliminary Blood No Growth after 24 hours 04/20/22 11:34 Urine Culture - Final Urine,Voided Assessment and Plan Assessment: #Acute metabolic encephalopathy #Generalized weakness #Urinary tract infection #Normocytic anemia Resolved: Elevated BUN Chronic conditions: COPD, history of CVA, hypertension, seizure disorder Patient presents with altered mentation and generalized weakness thought to be related to UTI. CT brain appears to show chronic findings. UA is + for leukocyte esterase. Patient will be started on Rocephin and urine culture will be recollected (initial one is a contaminant). Blood cultures are negative so far. PT and OT is consulted to work with this patient. Encourage hydration by mouth. Normocytic anemia is of unknown origin. Continue to monitor for now. DuoNebs as needed for shortness of breath or wheezing. Continue ASA and Lipitor for history of CVA. Restart Coreg and Lisinopril for hypertension. Keppra restarted for seizure disorder. DVT prophylaxis: [Heparin] Discussed with: [Patient, nursing] Anticipated discharge: [1-2 days] Anticipated discharge place: [[facility]] Will need prior auth before returning to SNF. Anticipate DC on Sunday.
[2022-04-22] MEDS ORDERED: QUEtiapine 25 MG TAB PO STA (21:15)
[2022-04-22] MEDS: MIRTAZAPINE 15 MG TAB PO SCH (21:52)
[2022-04-22] MEDS: ATORVASTATIN 20 MG TAB PO SCH (21:52)
[2022-04-23] MEDS: amLODIPine 5 MG TAB PO SCH (07:25)
[2022-04-23] MEDS: ASPIRIN 81 MG PO SCH (07:25)
[2022-04-23] MEDS: risperiDONE 0.5 MG TAB PO SCH ×2 (07:26→19:59)
[2022-04-23] MEDS: carvediloL 6.25 MG TAB PO SCH ×2 (07:26→16:59)
[2022-04-23] MEDS: HEPARIN SODIUM,PORCINE/PF 5,000 UNIT/0.5 ML SYRINGE SQ SCH ×2 (07:26→19:59)
[2022-04-23] MEDS: FAMOTIDINE 20 MG TAB PO SCH (07:26)
[2022-04-23] MEDS: levETIRAcetam 500 MG TAB PO SCH ×2 (07:26→19:59)
--- NOTE | 2022-04-23 10:52 | P.PN ---
Subjective Progress Note Date: 04/23/22 Principal diagnosis: Confusion Patient was seen and examined. No acute events overnight. Patient with no complaints. He is AO x 0-1. No concerns from nursing. Objective - Vital Signs Vital signs: Vital Signs Temp 97.9 F 04/23/22 01:35 Pulse 69 04/23/22 01:35 Resp 17 04/23/22 01:35 BP 112/63 04/23/22 01:35 Pulse Ox 94 L 04/23/22 01:35 FiO2 Intake & Output 04/22/22 04/23/22 04/23/22 18:59 06:59 18:59 Intake Total 170 Balance 170 Intake: Intake, IV Titration 50 Amount cefTRIAXone 2 gm In 50 Sodium Chloride 0.9% 50 ml @ 100 mls/hr IVPB Q24HR [facility] Rx#:[id number] Oral 120 Other: Voiding Method Diaper Diaper Incontinent Incontinent # Voids 2 - Exam General: [non toxic], [no distress], [appears at stated age] Derm: [warm], [dry] Head: [atraumatic], [normocephalic], [symmetric] Eyes: [EOMI], [no lid lag], [anicteric sclera] Mouth: [no lip lesion], [mucus membranes moist] Cardiovascular: [S1S2 reg], [no murmur] Lungs: [CTA bilateral], [no rhonchi, no rales] , [no accessory muscle use] Abdominal: [soft], [ nontender to palpation] Ext: [no gross muscle atrophy], [no edema], [no contractures] Neuro: [no focal neuro deficits] Psych: [AOx1], [appropriate affect] - Labs CBC & Chem 7: 04/21/22 07:13 04/21/22 07:13 Labs: Microbiology - Last 24 Hours (Table) 04/20/22 15:35 Blood Culture - Preliminary Blood No Growth after 48 hours 04/20/22 15:20 Blood Culture - Preliminary Blood No Growth after 48 hours Assessment and Plan Assessment: #Acute metabolic encephalopathy #Generalized weakness #Urinary tract infection #Normocytic anemia Resolved: Elevated BUN Chronic conditions: COPD, history of CVA, hypertension, seizure disorder Patient presents with altered mentation and generalized weakness thought to be related to UTI. CT brain appears to show chronic findings. UA is + for leukocyte esterase. Patient will be started on Rocephin and urine culture was recollected today (initial one is a contaminant). Blood cultures are negative so far. PT and OT is consulted to work with this patient. Encourage hydration by mouth. Normocytic anemia is of unknown origin. Continue to monitor for now. DuoNebs as needed for shortness of breath or wheezing. Continue ASA and Lipitor for history of CVA. Restart Coreg and Lisinopril for hypertension. Keppra restarted for seizure disorder. DVT prophylaxis: [Heparin] Discussed with: [Patient, nursing] Anticipated discharge: [1-2 days] Anticipated discharge place: [[facility]] Will need prior auth before returning to SNF. Appears to be at baseline. Anticipate DC on Sunday.
[2022-04-23 16:50] LABS: Appearance,Urine Clear (Clear); Bilirubin,Urine Negative (Negative); Blood,Urine Negative (Negative); Color,Urine Yellow; Glucose,Urine (UA) Negative (Negative); Hyaline Casts,Urine 1 /lpf (0-2); Ketones,Urine Negative (Negative); Leukocyte Esterase,Urine Small (Negative); Mucus,Urine Rare /hpf; Nitrite,Urine Negative (Negative); Protein,Urine Negative (Negative); RBC,Urine 2 /hpf (0-5); Specific Gravity,Urine 1.019 (1.001-1.035); Squamous Epithelial Cell,Urine <1 /hpf (0-4); Urobilinogen,Urine <2.0 mg/dL (<2.0); WBC,Urine 13 /hpf (0-5)
[2022-04-23] MEDS: MIRTAZAPINE 15 MG TAB PO SCH (19:58)
[2022-04-23] MEDS: ATORVASTATIN 20 MG TAB PO SCH (19:58)
[2022-04-23] MEDS: QUEtiapine 25 MG TAB PO SCH (19:58)
[2022-04-24] MEDS: HEPARIN SODIUM,PORCINE/PF 5,000 UNIT/0.5 ML SYRINGE SQ SCH ×2 (07:38→20:34)
[2022-04-24] MEDS: amLODIPine 5 MG TAB PO SCH (07:39)
[2022-04-24] MEDS: levETIRAcetam 500 MG TAB PO SCH ×2 (07:39→20:33)
[2022-04-24] MEDS: carvediloL 6.25 MG TAB PO SCH ×2 (07:39→16:30)
[2022-04-24] MEDS: ASPIRIN 81 MG PO SCH (07:39)
[2022-04-24] MEDS: FAMOTIDINE 20 MG TAB PO SCH (07:39)
--- NOTE | 2022-04-24 15:09 | P.DS ---
Providers Date of admission: 04/20/22 13:16 Expected date of discharge: 04/24/22 Attending physician: Dann Roberson MD Primary care physician: Nico Randall MD Hospital Course: This is an 86-year-old gentleman with a medical history significant for dementia, COPD, CVA, hypertension and seizure disorder who presented with generalized weakness and altered mentation from baseline. Per past documentation reported he had some dysuria and urinary frequency. Urine culture was collected but species was reported as contamination. His condition improved with IV antibiotics. He was evaluated today and appeared stable. No acute complaints. He is a very poor historian. Per CM discussion with the facility apparently that is his baseline due to his advanced dementia. He'll be discharged on a course of antibiotics to complete treatment for chronic kidney UTI. Discharge instructions for facility to return if any recurrence of symptoms. He is currently stable for discharge. Discharge diagnoses 1. Acute encephalopathy secondary to UTI, improved 2. Generalized weakness likely secondary to infection, improved 3. Complicated UTI, finish treatment with oral antibiotics 4. Advanced dementia 5. COPD, exacerbation 6. History of CVA 7. Hypertension 8. History of seizure disorder, stable 10. Normocytic anemia, chronic, stable Discharge date: 04/24/2022 Discharge condition time greater than 30 minutes Vitals: Reviewed General: No acute distress, pleasantly confused HEENT: Mucous membranes moist neck supple Cardiovascular: RRR, S1-S2 Lungs: Breath sounds equal and diminished without wheezing Abdomen: Soft, nontender, nondistended Extremities: No lower extremity edema Patient Condition at Discharge: Good Plan - Discharge Summary Discharge Rx Participant: No New Discharge Prescriptions: New Acetaminophen Tab [Tylenol] 650 mg PO Q6HR PRN tab PRN Reason: Mild Pain Or Fever > 100.5 Aspirin 81 mg PO DAILY tab Cefpodoxime Proxetil [Vantin] 200 mg PO Q12HR 5 Days #10 tab Continue Atorvastatin Calcium 20 mg PO HS@2000 Escitalopram [Lexapro] 10 mg PO DAILY@0800 Famotidine [Pepcid] 20 mg PO DAILY@0800 Lactobacillus Acidophilus [Acidophilus] 1 tab PO DAILY@0800 Mirtazapine 7.5 mg PO HS@2000 Zinc Oxide 20% Oint 1 applic TOPICAL BID@0800,1600 amLODIPine [Norvasc] 5 mg PO DAILY@0800 carvediloL [Coreg] 6.25 mg PO BID@0800,1600 levETIRAcetam [Keppra] 500 mg PO BID@0800,1600 lisinopriL [Zestril] 2.5 mg PO DAILY@0800 risperiDONE [RisperDAL] 0.5 mg PO Q12H Ipratropium-Albuterol Nebulize [Duoneb 0.5 mg-3 mg/3 ml Soln] 3 ml INHALATION RT-TID PRN each PRN Reason: Shortness Of Breath Or Wheezing Cqhsgtxk-Ttlrdrdmcs-Ybgh Oint [Triple Antibiotic Ointment] 1 applic TOPICAL BID Discharge Medication List Atorvastatin Calcium 20 mg PO HS@199903/16/22 [History] Escitalopram [Lexapro] 10 mg PO DAILY@79903/16/22 [History] Famotidine [Pepcid] 20 mg PO DAILY@79903/16/22 [History] Lactobacillus Acidophilus [Acidophilus] 1 tab PO DAILY@79903/16/22 [History] Mirtazapine 7.5 mg PO HS@199903/16/22 [History] amLODIPine [Norvasc] 5 mg PO DAILY@79903/16/22 [History] carvediloL [Coreg] 6.25 mg PO BID@0800,1600 03/16/22 [History] levETIRAcetam [Keppra] 500 mg PO BID@0800,1600 03/16/22 [History] lisinopriL [Zestril] 2.5 mg PO DAILY@0800 03/16/22 [History] risperiDONE [RisperDAL] 0.5 mg PO Q12H 03/16/22 [History] Ipratropium-Albuterol Nebulize [Duoneb 0.5 mg-3 mg/3 ml Soln] 3 ml INHALATION RT-TID PRN each 03/21/22 [Rx] Mkgfzqiy-Kzflnjmlsz-Edni Oint [Triple Antibiotic Ointment] 1 applic TOPICAL BID 04/20/22 [History] Zinc Oxide 20% Oint 1 applic TOPICAL BID@0800,1600 04/20/22 [History] Acetaminophen Tab [Tylenol] 650 mg PO Q6HR PRN tab 04/24/22 [Rx] Aspirin 81 mg PO DAILY tab 04/24/22 [Rx] Cefpodoxime Proxetil [Vantin] 200 mg PO Q12HR 5 Days #10 tab 04/24/22 [Rx] Follow up Appointment(s)/Referral(s): Richard Harrell, [NON-STAFF] - 1 Week (Please follow-up with pcp within 7 days) None,Stated [REFERRING] - 1-2 days Discharge Disposition: TRANSFER TO SNF/ECF Plan of Treatment: Please follow-up with her primary care provider within 7 days Please return with any new or worsening symptoms Please start taking Cefpodoxime 200 mg twice a day for 5 days starting on 04/25
--- NOTE | 2022-04-24 16:42 | P.PN ---
Subjective Progress Note Date: 04/24/22 CC: confused Mr. Chowdary was seen and examined. No acute complaints. He is pleasantly confused. Vitals: Reviewed General: No acute distress, pleasantly confused HEENT: Mucous membranes moist neck supple Cardiovascular: RRR, S1-S2 Lungs: Breath sounds equal and diminished without wheezing Abdomen: Soft, nontender, nondistended Extremities: No lower extremity edema Assessment and plan 1. Acute encephalopathy secondary to UTI, improved Blood cultures negative. First urine culture contaminated. Continue with IV ceftriaxone. 2. Generalized weakness likely secondary to infection, improved 3. Complicated UTI Continue with IV ceftriaxone 4. Advanced dementia Seems to be a baseline. Continue with mirtazapine, Seroquel, risperidone 5. COPD, Not in exacerbation. Continue with inhalers as needed. 6. History of CVA Continue with aspirin and statin 7. Hypertension Controlled. Continue with amlodipine, Coreg and lisinopril 8. History of seizure disorder, stable Continue Keppra 10. Normocytic anemia, chronic, stable Disposition: Awaiting placement Objective - Vital Signs Vital signs: Vital Signs Temp 98 F 04/24/22 14:00 Pulse 86 04/24/22 14:00 Resp 18 04/24/22 14:00 BP 159/80 04/24/22 14:00 Pulse Ox 95 04/24/22 14:00 FiO2 Intake & Output 04/23/22 04/24/22 04/24/22 18:59 06:59 18:59 Intake Total 170 Balance 170 Intake: Intake, IV Titration 50 Amount cefTRIAXone 2 gm In 50 Sodium Chloride 0.9% 50 ml @ 100 mls/hr IVPB Q24HR [facility] Rx#:[id number] Oral 120 Other: Voiding Method Diaper Incontinent # Voids 2 - Labs CBC & Chem 7: 04/21/22 07:13 04/21/22 07:13 Labs: Abnormal Lab Results - Last 24 Hours (Table) 04/23/22 Range/Units 16:44 Ur Leukocyte Esterase Small H (Negative) Urine WBC 13 H (0-5) /hpf Urine Mucus Rare H (None) /hpf Microbiology - Last 24 Hours (Table) 04/23/22 16:44 Urine Culture - Preliminary Urine,Clean Catch 04/20/22 15:35 Blood Culture - Preliminary Blood No Growth after 72 hours 04/20/22 15:20 Blood Culture - Preliminary Blood No Growth after 72 hours
[2022-04-24] MEDS: QUEtiapine 25 MG TAB PO SCH (20:33)
[2022-04-24] MEDS: risperiDONE 0.5 MG TAB PO SCH (20:33)
[2022-04-24] MEDS: ATORVASTATIN 20 MG TAB PO SCH (20:33)
[2022-04-24] MEDS: MIRTAZAPINE 15 MG TAB PO SCH (20:34)
[2022-04-25] MEDS: FAMOTIDINE 20 MG TAB PO SCH (07:09)
[2022-04-25] MEDS: ASPIRIN 81 MG PO SCH (07:09)
[2022-04-25] MEDS: amLODIPine 5 MG TAB PO SCH (07:09)
[2022-04-25] MEDS: carvediloL 6.25 MG TAB PO SCH ×2 (07:09→18:58)
[2022-04-25] MEDS: HEPARIN SODIUM,PORCINE/PF 5,000 UNIT/0.5 ML SYRINGE SQ SCH (07:09)
[2022-04-25] MEDS: risperiDONE 0.5 MG TAB PO SCH (07:10)
[2022-04-25] MEDS: levETIRAcetam 500 MG TAB PO SCH (07:10)
--- NOTE | 2022-04-25 11:46 | P.DS ---
Providers Date of admission: 04/20/22 13:16 Expected date of discharge: 04/25/22 Attending physician: Dann Roberson MD Primary care physician: Nico Randall MD Hospital Course: Discharge Diagnosis:1. Acute encephalopathy secondary to UTI, improved 2. Generalized weakness likely secondary to infection, improved 3. Complicated UTI, finish treatment with oral antibiotics 4. Advanced dementia 5. COPD, exacerbation 6. History of CVA 7. Hypertension 8. History of seizure disorder, stable 10. Normocytic anemia, chronic, stable Hospital Course: This is an 86-year-old gentleman with a medical history significant for dementia, COPD, CVA, hypertension and seizure disorder who presented with generalized weakness and altered mentation from baseline. Per past documentation reported he had some dysuria and urinary frequency. Urine culture was collected but species was reported as contamination. His condition improved with IV antibiotics. He was evaluated today and appeared stable. No acute complaints. He is a very poor historian. Per CM discussion with the facility apparently that is his baseline due to his advanced dementia. He'll be discharged on a course of antibiotics to complete treatment for UTI. Discharge instructions for facility to return if any recurrence of symptoms. He is currently stable for discharge. Patient seen and examined at bedside.[] Vital signs reviewed and stable. General: [non toxic], [no distress], [appears at stated age] Derm: [warm], [dry] Head: [atraumatic], [normocephalic], [symmetric] Eyes: [EOMI], [no lid lag], [anicteric sclera] Mouth: [no lip lesion], [mucus membranes moist] Cardiovascular: [S1S2 reg], [no murmur], [positive posterior tibial pulse bilateral], Lungs: [CTA bilateral], [no rhonchi, no rales] , [no accessory muscle use] Abdominal: [soft], [ nontender to palpation], [no guarding], [no appreciable organomegaly] Ext: [no gross muscle atrophy], [no edema], [no contractures] Neuro: [ CN II-XI grossly intact], [no focal neuro deficits] Psych: AAOx1. moderately confused. A total of [33] minutes of time were spent preparing this complex discharge summary . Patient Condition at Discharge: Fair Plan - Discharge Summary Discharge Rx Participant: No New Discharge Prescriptions: New Acetaminophen Tab [Tylenol] 650 mg PO Q6HR PRN tab PRN Reason: Mild Pain Or Fever > 100.5 Aspirin 81 mg PO DAILY tab Cefpodoxime Proxetil [Vantin] 200 mg PO Q12HR 5 Days #10 tab Continue Atorvastatin Calcium 20 mg PO HS@1999 Escitalopram [Lexapro] 10 mg PO DAILY@0800 Famotidine [Pepcid] 20 mg PO DAILY@0800 Lactobacillus Acidophilus [Acidophilus] 1 tab PO DAILY@0800 Mirtazapine 7.5 mg PO HS@1999 Zinc Oxide 20% Oint 1 applic TOPICAL BID@0800,1600 amLODIPine [Norvasc] 5 mg PO DAILY@0800 carvediloL [Coreg] 6.25 mg PO BID@0800,1600 levETIRAcetam [Keppra] 500 mg PO BID@0800,1600 lisinopriL [Zestril] 2.5 mg PO DAILY@0800 risperiDONE [RisperDAL] 0.5 mg PO Q12H Ipratropium-Albuterol Nebulize [Duoneb 0.5 mg-3 mg/3 ml Soln] 3 ml INHALATION RT-TID PRN each PRN Reason: Shortness Of Breath Or Wheezing Lxuxkowa-Anwpzrmwfl-Wvtk Oint [Triple Antibiotic Ointment] 1 applic TOPICAL BID Discharge Medication List Atorvastatin Calcium 20 mg PO HS@199903/16/22 [History] Escitalopram [Lexapro] 10 mg PO DAILY@0800 03/16/22 [History] Famotidine [Pepcid] 20 mg PO DAILY@0800 03/16/22 [History] Lactobacillus Acidophilus [Acidophilus] 1 tab PO DAILY@0800 03/16/22 [History] Mirtazapine 7.5 mg PO HS@199903/16/22 [History] amLODIPine [Norvasc] 5 mg PO DAILY@0800 03/16/22 [History] carvediloL [Coreg] 6.25 mg PO BID@0800,1600 03/16/22 [History] levETIRAcetam [Keppra] 500 mg PO BID@0800,1600 03/16/22 [History] lisinopriL [Zestril] 2.5 mg PO DAILY@0800 03/16/22 [History] risperiDONE [RisperDAL] 0.5 mg PO Q12H 03/16/22 [History] Ipratropium-Albuterol Nebulize [Duoneb 0.5 mg-3 mg/3 ml Soln] 3 ml INHALATION RT-TID PRN each 03/21/22 [Rx] Vmxjvkha-Zotkmkafel-Uszm Oint [Triple Antibiotic Ointment] 1 applic TOPICAL BID 04/20/22 [History] Zinc Oxide 20% Oint 1 applic TOPICAL BID@0800,1600 04/20/22 [History] Acetaminophen Tab [Tylenol] 650 mg PO Q6HR PRN tab 04/24/22 [Rx] Aspirin 81 mg PO DAILY tab 04/24/22 [Rx] Cefpodoxime Proxetil [Vantin] 200 mg PO Q12HR 5 Days #10 tab 04/24/22 [Rx] [facility]ment[facility] - 1 Week (Please follow-up with pcp within 7 days) None,Stated [REFERRING] - 1-2 days Discharge Disposition: TRANSFER TO SNF/ECF Plan of Treatment: Please follow-up with her primary care provider within 7 days Please return with any new or worsening symptoms Please start taking Cefpodoxime 200 mg twice a day for 5 days starting on 04/25
[2022-04-25 15:13] VITALS: BP 107/66; PULSE 73; RESP 15; TEMP 97.4
== END 2022-04-25 18:19 ==
LOC: EC 09:16 → 4SSUR 13:16 → INTOOBSV 13:16 → 4SSUR 16:26 → UNDODISIN 04-25 18:19
PROVIDERS: ADMIT Family Medicine; ATTEND Family Medicine
DX: N39.0 Urinary tract infection, site not specified (principal); G93.41 Metabolic encephalopathy; J44.1 Chronic obstructive pulmonary disease with (acute) exacerbation; E86.0 Dehydration; F03.90 Unspecified dementia, unspecified severity, without behavioral disturbance, psychotic disturbance, mood disturbance, and anxiety; I10 Essential (primary) hypertension; E78.5 Hyperlipidemia, unspecified; G40.909 Epilepsy, unspecified, not intractable, without status epilepticus; D64.9 Anemia, unspecified; R29.6 Repeated falls; Z79.899 Other long term (current) drug therapy; Z86.73 Personal history of transient ischemic attack (TIA), and cerebral infarction without residual deficits; Z87.828 Personal history of other (healed) physical injury and trauma; Z87.891 Personal history of nicotine dependence; Z98.890 Other specified postprocedural states
CPT/HCPCS: 96365; 96366 ×3; 96372 ×6; 99285; 36415; 93005; 97530 ×2; 97162; 97166; 80053; 80048; 83605; 83735; 84484; 85025 ×2; 85610; 85730; 81001 ×2; 87040; 87086 ×2; 71046; 70450; G0378 ×6; J0696 ×5; J1644 ×6

== ENCOUNTER 2022-04-27 19:28 | Emergency (ER) | payer MEDICARE ==
[2022-04-27 19:44] VITALS: RESP 16; TEMP 98
[2022-04-27] MEDS ORDERED: SODIUM CHLORIDE 0.9% 500 ML 500 ML IV ONE (20:02)
[2022-04-27 20:26] LABS: Glucose,Whole Blood 104 mg/dL (70-110)
[2022-04-27 20:36] LABS: Basophils # (A) 0.1 k/uL (0-0.2); Basophils % (A) 1 %; Eosinophils # (A) 0.3 k/uL (0-0.7); Eosinophils % (A) 5 %; HCT 39.5 % (39.0-53.0); HGB 12.6 gm/dL (13.0-17.5); Lymphocytes # (A) 1.2 k/uL (1.0-4.8); Lymphocytes % (A) 19 %; MCH 30.3 pg (25.0-35.0); MCV 94.6 fL (80.0-100.0); Mean Platelet Volume 6.9; Monocytes # (A) 0.6 k/uL (0-1.0); Monocytes % (A) 10 %; Neutrophils % (A) 64 %; Platelet Count 333 k/uL (150-450); RBC 4.18 m/uL (4.30-5.90); RDW 13.8 % (11.5-15.5); WBC 6.3 k/uL (3.8-10.6)
[2022-04-27 20:45] LABS: Albumin 3.1 g/dL (3.5-5.0); Calcium 8.8 mg/dL (8.4-10.2); Potassium 4.4 mmol/L (3.5-5.1); Total Bilirubin 0.5 mg/dL (0.2-1.3); Total Protein 6.1 g/dL (6.3-8.2)
[2022-04-27 20:47] LABS: Partial Thromboplastin Time 25.8 sec (22.0-30.0)
[2022-04-27 21:04] VITALS: PULSE 78
--- NOTE | 2022-04-27 21:21 | XR ---
EXAMINATION TYPE: XR chest 2V DATE OF EXAM: 04/27/2022 COMPARISON: 04/20/2022 HISTORY: Altered mental status TECHNIQUE: Frontal and lateral views of the chest are obtained. FINDINGS: There is mild interstitial edema superimposed diffuse hazy opacity. No pleural effusion, o r pneumothorax seen. The cardiac silhouette size is within normal limits. The osseous structures a re intact. IMPRESSION: Interstitial edema/atelectasis.
[2022-04-27 21:54] LABS: Appearance,Urine Clear (Clear); Bilirubin,Urine Negative (Negative); Blood,Urine Negative (Negative); Color,Urine Yellow; Glucose,Urine (UA) Negative (Negative); Hyaline Casts,Urine 18 /lpf (0-2); Ketones,Urine Negative (Negative); Leukocyte Esterase,Urine Trace (Negative); Mucus,Urine Few /hpf; Nitrite,Urine Negative (Negative); PH, Urine 5.5 (5.0-8.0); Protein,Urine Trace (Negative); RBC,Urine 1 /hpf (0-5); Specific Gravity,Urine 1.027 (1.001-1.035); Squamous Epithelial Cell,Urine 1 /hpf (0-4); Urobilinogen,Urine <2.0 mg/dL (<2.0); WBC,Urine 5 /hpf (0-5)
--- NOTE | 2022-04-27 21:59 | ED ---
General Adult HPI - General Chief complaint: Recheck/Abnormal Lab/Rx Stated complaint: AMS Time Seen by Provider: 04/27/22 19:51 Source: EMS Mode of arrival: EMS Limitations: altered mental status - History of Present Illness Initial comments: Patient is an 86-year-old male with past medical history dementia who was sent from his nursing facility for behavioral changes. Patient resides at [facility]. According to EMS patient was agitated with the staff. Patient is a questionable historian. Denies fever, chills, shortness of breath, chest pain, abdominal pain, nausea, vomiting, burning with urination. - Related Data Home Medications Medication Instructions Recorded Confirmed Atorvastatin Calcium 20 mg PO HS@199903/16/22 04/26/22 Escitalopram [Lexapro] 10 mg PO DAILY@79903/16/22 04/26/22 Famotidine [Pepcid] 20 mg PO DAILY@79903/16/22 04/26/22 Lactobacillus Acidophilus 1 tab PO DAILY@79903/16/22 04/26/22 [Acidophilus] Mirtazapine 7.5 mg PO HS@199903/16/22 04/26/22 amLODIPine [Norvasc] 5 mg PO DAILY@79903/16/22 04/26/22 carvediloL [Coreg] 6.25 mg PO BID@0800,1600 03/16/22 04/26/22 levETIRAcetam [Keppra] 500 mg PO BID@0800,1600 03/16/22 04/26/22 lisinopriL [Zestril] 2.5 mg PO DAILY@79903/16/22 04/26/22 risperiDONE [RisperDAL] 0.5 mg PO Q12H 03/16/22 04/26/22 Hkkewnoa-Zlfffiezwr-Gpmv Oint 1 applic TOPICAL BID 04/20/22 04/26/22 [Triple Antibiotic Ointment] Zinc Oxide 20% Oint 1 applic TOPICAL BID@0800,1600 04/20/22 04/26/22 Previous Rx's Medication Instructions Recorded Ipratropium-Albuterol Nebulize 3 ml INHALATION RT-TID PRN each 03/21/22 [Duoneb 0.5 mg-3 mg/3 ml Soln] Acetaminophen Tab [Tylenol] 650 mg PO Q6HR PRN tab 04/24/22 Aspirin 81 mg PO DAILY tab 04/24/22 Cefpodoxime Proxetil [Vantin] 200 mg PO Q12HR 5 Days #10 tab 04/24/22 Allergies Allergy/AdvReac Type Severity Reaction Status Date / Time No Known Allergies Allergy Verified 04/27/22 19:38 Review of Systems ROS Statement: Those systems with pertinent positive or pertinent negative responses have been documented in the HPI. ROS Other: All systems not noted in ROS Statement are negative. Past Medical History Past Medical History: CVA/TIA, Hyperlipidemia, Seizure Disorder Additional Past Medical History / Comment(s): seizure disorder diagnosed 03/15/22 History of Any Multi-Drug Resistant Organisms: None Reported Past Surgical History: Bowel Resection Additional Past Surgical History / Comment(s): cervical 2018 Past Psychological History: No Psychological Hx Reported Smoking Status: Former smoker Past Alcohol Use History: Occasional Past Drug Use History: None Reported General Exam Limitations: altered mental status General appearance: alert, in no apparent distress Head exam: Present: atraumatic, normocephalic, normal inspection Eye exam: Present: normal appearance, PERRL, EOMI. Absent: scleral icterus, conjunctival injection, periorbital swelling Respiratory exam: Present: normal lung sounds bilaterally. Absent: respiratory distress, wheezes, rales, rhonchi, stridor Cardiovascular Exam: Present: regular rate, normal rhythm, normal heart sounds. Absent: systolic murmur, diastolic murmur, rubs, gallop, clicks GI/Abdominal exam: Present: soft, normal bowel sounds. Absent: distended, tenderness, guarding, rebound, rigid Neurological exam: Present: alert, CN II-XII intact. Absent: oriented X3 Psychiatric exam: Present: normal affect, normal mood Skin exam: Present: warm, dry, intact, normal color. Absent: rash Course Vital Signs 04/27/22 04/27/22 04/27/22 19:40 20:44 22:28 Temperature 98 F Pulse Rate 68 78 78 Respiratory 16 16 16 Rate Blood Pressure 107/52 183/96 126/73 O2 Sat by Pulse 96 98 98 Oximetry EKG Findings - EKG Comments: EKG Findings:: EKG taken at 20:34. Sinus rhythm, no ST-T segment or T-wave abnormalities. Ventricular rate 64. CA interval 169. QRS duration 97. QTc 437 Medical Decision Making - Medical Decision Making This is an 86-year-old male with past medical history dementia who presents from his nursing facility due to behavior change today. Thorough history and examination were performed. Patient is well-appearing and in no apparent distress. EKG shows normal sinus rhythm without ST or T-wave abnormalities. Laboratory studies are unremarkable. Troponin is within normal limits. Urinalysis is not indicative of infection. Patient observed closely in the emergency department. He did not show any signs of aggression or agitation. He will be discharged back to his facility. Dr. Santiago is my attending. - Lab Data Result diagrams: 04/27/22 20:28 04/27/22 20:28 Lab Results 04/27/22 04/27/22 04/27/22 Range/Units 20:03 20:24 20:28 WBC 6.3 (3.8-10.6) k/uL RBC 4.18 L (4.30-5.90) m/uL Hgb 12.6 L (13.0-17.5) gm/dL Hct 39.5 (39.0-53.0) % MCV 94.6 (80.0-100.0) fL MCH 30.3 (25.0-35.0) pg MCHC 32.0 (31.0-37.0) g/dL RDW 13.8 (11.5-15.5) % Plt Count 333 (150-450) k/uL MPV 6.9 Neutrophils % 64 % Lymphocytes % 19 % Monocytes % 10 % Eosinophils % 5 % Basophils % 1 % Neutrophils # 4.0 (1.3-7.7) k/uL Lymphocytes # 1.2 (1.0-4.8) k/uL Monocytes # 0.6 (0-1.0) k/uL Eosinophils # 0.3 (0-0.7) k/uL Basophils # 0.1 (0-0.2) k/uL PT (9.0-12.0) sec INR (<1.2) APTT (22.0-30.0) sec Sodium (137-145) mmol/L Potassium (3.5-5.1) mmol/L Chloride (98-107) mmol/L Carbon Dioxide (22-30) mmol/L Anion Gap mmol/L BUN (9-20) mg/dL Creatinine (0.66-1.25) mg/dL Est GFR (CKD-EPI)AfAm (>60 ml/min/1.73 sqM) Est GFR (CKD-EPI)NonAf (>60 ml/min/1.73 sqM) Glucose (74-99) mg/dL POC Glucose (mg/dL) 104 (70-110) mg/dL POC Glu Grated Cheese Maker ID Bret Carter Calcium (8.4-10.2) mg/dL Total Bilirubin (0.2-1.3) mg/dL AST (17-59) U/L ALT (4-49) U/L Alkaline Phosphatase (38-126) U/L Troponin I (0.000-0.034) ng/mL Total Protein (6.3-8.2) g/dL Albumin (3.5-5.0) g/dL Urine Color Yellow Urine Appearance Clear (Clear) Urine pH 5.5 (5.0-8.0) Ur Specific [place] 1.027 (1.001-1.035) Urine Protein Trace H (Negative) Urine Glucose (UA) Negative (Negative) Urine Ketones Negative (Negative) Urine Blood Negative (Negative) Urine Nitrite Negative (Negative) Urine Bilirubin Negative (Negative) Urine Urobilinogen <2.0 (<2.0) mg/dL Ur Leukocyte Esterase Trace H (Negative) Urine RBC 1 (0-5) /hpf Urine WBC 5 (0-5) /hpf Ur Squamous Epith Cells 1 (0-4) /hpf Hyaline Casts 18 H (0-2) /lpf Urine Mucus Few H (None) /hpf 04/27/22 04/27/22 04/27/22 Range/Units 20:28 20:28 20:28 WBC (3.8-10.6) k/uL RBC (4.30-5.90) m/uL Hgb (13.0-17.5) gm/dL Hct (39.0-53.0) % MCV (80.0-100.0) fL MCH (25.0-35.0) pg MCHC (31.0-37.0) g/dL RDW (11.5-15.5) % Plt Count (150-450) k/uL MPV Neutrophils % % Lymphocytes % % Monocytes % % Eosinophils % % Basophils % % Neutrophils # (1.3-7.7) k/uL Lymphocytes # (1.0-4.8) k/uL Monocytes # (0-1.0) k/uL Eosinophils # (0-0.7) k/uL Basophils # (0-0.2) k/uL PT 11.0 (9.0-12.0) sec INR 1.0 (<1.2) APTT 25.8 (22.0-30.0) sec Sodium 141 (137-145) mmol/L Potassium 4.4 (3.5-5.1) mmol/L Chloride 108 H (98-107) mmol/L Carbon Dioxide 25 (22-30) mmol/L Anion Gap 8 mmol/L BUN 31 H (9-20) mg/dL Creatinine 0.93 (0.66-1.25) mg/dL Est GFR (CKD-EPI)AfAm 85 (>60 ml/min/1.73 sqM) Est GFR (CKD-EPI)NonAf 74 (>60 ml/min/1.73 sqM) Glucose 100 H (74-99) mg/dL POC Glucose (mg/dL) (70-110) mg/dL POC Glu Grated Cheese Maker ID Calcium 8.8 (8.4-10.2) mg/dL Total Bilirubin 0.5 (0.2-1.3) mg/dL AST 23 (17-59) U/L ALT 22 (4-49) U/L Alkaline Phosphatase 60 (38-126) U/L Troponin I <0.012 (0.000-0.034) ng/mL Total Protein 6.1 L (6.3-8.2) g/dL Albumin 3.1 L (3.5-5.0) g/dL Urine Color Urine Appearance (Clear) Urine pH (5.0-8.0) Ur Specific [place] (1.001-1.035) Urine Protein (Negative) Urine Glucose (UA) (Negative) Urine Ketones (Negative) Urine Blood (Negative) Urine Nitrite (Negative) Urine Bilirubin (Negative) Urine Urobilinogen (<2.0) mg/dL Ur Leukocyte Esterase (Negative) Urine RBC (0-5) /hpf Urine WBC (0-5) /hpf Ur Squamous Epith Cells (0-4) /hpf Hyaline Casts (0-2) /lpf Urine Mucus (None) /hpf Disposition Clinical Impression: Agitation Disposition: HOME SELF-CARE Condition: Good Additional Instructions: Follow-up with primary care provider in one to 2 days. Return to the emergency Department patient experiences new, concerning, or worsening symptoms. Is patient prescribed a controlled substance at d/c from ED?: No Referrals: Nico Randall MD [Primary Care Provider] - 1-2 days Time of Disposition: 21:59
[2022-04-27 22:28] VITALS: BP 126/73
== END 2022-04-27 22:27 | disposition home or self-care (01) ==
LOC: EC 19:28
DX: R45.1 Restlessness and agitation (principal); Z86.73 Personal history of transient ischemic attack (TIA), and cerebral infarction without residual deficits; E78.5 Hyperlipidemia, unspecified; Z87.891 Personal history of nicotine dependence; Z79.899 Other long term (current) drug therapy
CPT/HCPCS: 36415; 71046; 80053; 81001; 84484; 85025; 85610; 85730; 93005; 96360; 96361; 99285